=== PATIENT | male | born 1935 | race Caucasian/White ===

== ENCOUNTER 2020-12-07 06:14 | Day surgery (SDC) | payer OTHER ==
[~2020-12-07] VITALS: Ht 180.3 cm; Wt 85.3 kg
[~2020-12-07 06:14] MED LIST: ALBU90OI INH; ALLO100 PO; AMLO5 PO; ATOR20 PO; Aspir 8181 MG PO; ENTRESTO 24 MG1 EACH PO; ESCI10 PO; FURO20 PO; Imdur60 MG PO; METO100ER PO; NITROGLYCERIN0.4 M2 SL; TAMS.4ER PO; TIOT18 INH; Xanax0.5 MG PO
== END 2020-12-07 08:14 | disposition home or self-care (01) ==
LOC: ORSCSDS 06:14
PROVIDERS: Orthopaedic Surgery
PROC: 01N50ZZ Release Median Nerve, Open Approach (ICD-10-PCS; principal; 2020-12-07 07:30)
DX: G56.02 Carpal tunnel syndrome, left upper limb (principal); I10 Essential (primary) hypertension; E78.5 Hyperlipidemia, unspecified; I25.2 Old myocardial infarction; Z87.891 Personal history of nicotine dependence; Z79.82 Long term (current) use of aspirin; Z79.899 Other long term (current) drug therapy
CPT/HCPCS: J2704; J3010; J7120

== ENCOUNTER 2021-01-15 18:39 | Inpatient (IN) | payer OTHER ==
[~2021-01-15] VITALS: Ht 180.3 cm; Wt 85.1 kg
[2021-01-15 19:36] LABS: BASOPHILS ABSOLUTE AUTO 0.09 K/mm3 (0.00-0.23); BASOPHILS PERCENT AUTO 1 % (0-2); EOSINOPHILS ABSOLUTE AUTO 0.33 K/mm3 (0.00-0.68); EOSINOPHILS PERCENT AUTO 3 % (0-6); Hematocrit 39.3 % (37.0-53.0); Hemoglobin 13.7 g/dL (13.5-17.5); IMMATURE GRAN ABSOLUTE AUTO 0.05 K/mm3 (0.00-0.10); IMMATURE GRAN PERCENT AUTO 0 % (0-1); LYMPHOCYTES ABSOLUTE AUTO 0.72 K/mm3 (0.84-5.20); LYMPHOCYTES PERCENT AUTO 6 % (21-46); MONOCYTES ABSOLUTE AUTO 0.81 K/mm3 (0.16-1.47); MONOCYTES PERCENT AUTO 7 % (4-13); Mean Corpuscular HGB 35.3 pg (26.0-34.0); Mean Corpuscular HGB Conc 34.9 g/dL (31.5-36.5); Mean Corpuscular Volume 101 fL (80-100); Mean Platelet Volume 9.6 fL (9.1-12.4); NEUTROPHILS ABSOLUTE AUTO 9.57 K/mm3 (1.96-9.15); NEUTROPHILS PERCENT AUTO 83 % (41-73); Platelet Count 145 K/mm3 (150-400); RDW Coefficient Variation 13.4 % (11.7-14.2); RDW Standard Deviation 49.7 fL (35.1-46.3); Red Blood Cell Count 3.88 M/mm3 (4.30-5.90); White Blood Cell Count 11.57 K/mm3 (4.00-11.30)
[2021-01-15 19:47] LABS: Alanine Aminotransfer (ALT/SGP 19 U/L (12-78); Albumin, Blood 3.5 g/dL (3.4-5.0); Alk Phos 90 U/L (50-136); Anion Gap 7 mmol/L (6-16); Aspartate Aminotrans (AST/SGOT 13 U/L (12-37); Bilirubin, Total 0.7 mg/dL (0.1-1.0); Blood Urea Nitrogen 25 mg/dL (8-24); Bun/Creatinine Ratio 20.2 (12.0-20.0); CO2, Blood 23 mmol/L (21-32); Calcium, Blood 8.4 mg/dL (8.5-10.1); Chloride, Blood 105 mmol/L (98-108); Creatinine, Blood 1.24 mg/dL (0.60-1.20); Globulin, Blood 3.5 g/dL (2.2-4.0); Glomerular Filtration Rate 59 (60-); Glucose, Blood 141 mg/dL (70-99); Potassium, Blood 4.3 mmol/L (3.5-5.5); Sodium, Blood 135 mmol/L (136-145); Troponin I <0.015 ng/mL (0.000-0.040)
[2021-01-15] MEDS ORDERED: PANT20 PO (21:43)
[2021-01-15] MEDS ORDERED: CITA20 PO (21:44)
[2021-01-15 22:17] LABS: Influenza A, PCR NEGATIVE (NEGATIVE); Influenza B, PCR NEGATIVE (NEGATIVE); Resp Syncytial Virus, PCR NEGATIVE (NEGATIVE); SARS-Cov-2 (COVID-19) PCR, MMC NEGATIVE (NEGATIVE)
[2021-01-16 00:41] LABS: Source, Urine Clean Catch
[2021-01-16 00:43] LABS: Bilirubin, Urine Neg (Neg); Blood, Urine 2+ (Neg); Glucose Qualitative, Urine Neg (Neg); Ketones, Urine Neg (Neg); Leukocyte Esterase, Urine Neg (Neg); Nitrite, Urine Neg (Neg); Protein, Urine 3+ (Neg); Urobilinogen, Urine NORM (Normal)
[2021-01-16 00:53] LABS: Appearance, Urine Clear (Clear); Bacteria Not Seen /hpf; Color, Urine Pale Yellow (P-Yellow); Red Blood Cells, Urine 0-2 /hpf (0-2); Squamous Epithelial Cells Not Seen /hpf (Few); White Blood Cells, Urine Not Seen /hpf (0-5)
[2021-01-16 03:14] LABS: BASOPHILS ABSOLUTE AUTO 0.08 K/mm3 (0.00-0.23); BASOPHILS PERCENT AUTO 1 % (0-2); EOSINOPHILS PERCENT AUTO 2 % (0-6); Hematocrit 40.8 % (37.0-53.0); Hemoglobin 14.3 g/dL (13.5-17.5); IMMATURE GRAN ABSOLUTE AUTO 0.04 K/mm3 (0.00-0.10); IMMATURE GRAN PERCENT AUTO 0 % (0-1); LYMPHOCYTES ABSOLUTE AUTO 0.86 K/mm3 (0.84-5.20); LYMPHOCYTES PERCENT AUTO 8 % (21-46); MONOCYTES ABSOLUTE AUTO 1.01 K/mm3 (0.16-1.47); MONOCYTES PERCENT AUTO 9 % (4-13); Mean Corpuscular HGB 35.4 pg (26.0-34.0); Mean Corpuscular Volume 101 fL (80-100); Mean Platelet Volume 9.3 fL (9.1-12.4); NEUTROPHILS PERCENT AUTO 80 % (41-73); Platelet Count 133 K/mm3 (150-400); RDW Coefficient Variation 13.4 % (11.7-14.2); RDW Standard Deviation 50.3 fL (35.1-46.3); Red Blood Cell Count 4.04 M/mm3 (4.30-5.90); White Blood Cell Count 10.69 K/mm3 (4.00-11.30)
[2021-01-16 03:35] LABS: Alanine Aminotransfer (ALT/SGP 17 U/L (12-78); Albumin, Blood 3.5 g/dL (3.4-5.0); Albumin/Globulin Ratio 0.9 (0.8-1.8); Alk Phos 92 U/L (50-136); Anion Gap 8 mmol/L (6-16); Aspartate Aminotrans (AST/SGOT 13 U/L (12-37); Bilirubin, Total 0.8 mg/dL (0.1-1.0); Blood Urea Nitrogen 24 mg/dL (8-24); Bun/Creatinine Ratio 20.5 (12.0-20.0); CO2, Blood 24 mmol/L (21-32); CPK Creatine Kinase 104 U/L (39-308); Calcium, Blood 8.4 mg/dL (8.5-10.1); Chloride, Blood 105 mmol/L (98-108); Creatinine, Blood 1.17 mg/dL (0.60-1.20); Globulin, Blood 3.9 g/dL (2.2-4.0); Glomerular Filtration Rate >60 (60-); Glucose, Blood 108 mg/dL (70-99); Potassium, Blood 3.8 mmol/L (3.5-5.5); Sodium, Blood 137 mmol/L (136-145); Total Protein, Blood 7.4 g/dL (6.4-8.2); Troponin I 0.064 ng/mL (0.000-0.040)
[2021-01-16 12:45] LABS: Troponin I 0.039 ng/mL (0.000-0.040)
[2021-01-16] MEDS ORDERED: ESCI10 PO (12:53)
[2021-01-16] MEDS ORDERED: SALM50IP INH (12:54)
--- NOTE | 2021-01-16 19:24 | NUR ---
SHIFT SUMMARY- PT ALERT AND ORIENTED X4. PT HAS DYSPNEA ON EXERTION HOWEVER SATS ARE MAINTAINING ON 2L O2 VIA NC TO REDUCE CARDIAC WORKLOAD. PT ON ROOM AIR AT BASELINE. PT HAS DENIED ANY CHEST PAIN SINCE ADMIT THROUGH THE ED. CARDIAC HEART HEALTH DIET ORDERED. PT DID STATE 8/10 LOW BACK PAIN AFTER BEING IN THE BED FOR A WHILE, MEDICATED WITH TYLENOL WHICH THE PT STATED HE TAKES AT HOME FOR THIS TYPE OF PAIN. ADMIT COMPLETED LUNG SOUNDS COARSE. PT ON TELE RUNNING NSR WITH OCC PVC'S. PT IN BED CALL LIGHT IN REACH AT THE TIME OF SHIFT CHANGE, BEDSIDE REPORT COMPLETED WITH NIGHT RN, NO S&S OF DISTRESS NOTED. BP WAS ELEVATED MEDICATED WITH IV LASIX NIGHT RN AWARE.
[2021-01-17 05:13] LABS: BASOPHILS ABSOLUTE AUTO 0.08 K/mm3 (0.00-0.23); BASOPHILS PERCENT AUTO 1 % (0-2); EOSINOPHILS ABSOLUTE AUTO 0.23 K/mm3 (0.00-0.68); EOSINOPHILS PERCENT AUTO 2 % (0-6); Hematocrit 40.9 % (37.0-53.0); Hemoglobin 14.1 g/dL (13.5-17.5); IMMATURE GRAN ABSOLUTE AUTO 0.02 K/mm3 (0.00-0.10); IMMATURE GRAN PERCENT AUTO 0 % (0-1); LYMPHOCYTES ABSOLUTE AUTO 0.72 K/mm3 (0.84-5.20); LYMPHOCYTES PERCENT AUTO 7 % (21-46); MONOCYTES ABSOLUTE AUTO 0.91 K/mm3 (0.16-1.47); MONOCYTES PERCENT AUTO 9 % (4-13); Mean Corpuscular HGB 35.2 pg (26.0-34.0); Mean Corpuscular HGB Conc 34.5 g/dL (31.5-36.5); Mean Corpuscular Volume 102 fL (80-100); Mean Platelet Volume 9.6 fL (9.1-12.4); NEUTROPHILS ABSOLUTE AUTO 7.74 K/mm3 (1.96-9.15); NEUTROPHILS PERCENT AUTO 80 % (41-73); Platelet Count 135 K/mm3 (150-400); RDW Coefficient Variation 13.2 % (11.7-14.2); RDW Standard Deviation 50.2 fL (35.1-46.3); Red Blood Cell Count 4.01 M/mm3 (4.30-5.90)
[2021-01-17 05:39] LABS: Bun/Creatinine Ratio 22.8 (12.0-20.0); Calcium, Blood 8.1 mg/dL (8.5-10.1); Creatinine, Blood 1.23 mg/dL (0.60-1.20); Magnesium, Blood 1.9 mg/dL (1.6-2.4); Potassium, Blood 4.2 mmol/L (3.5-5.5)
--- NOTE | 2021-01-17 07:00 | NUR ---
ASSUMED CARE OF PT- BEDSIDE REPORT COMPLETED WITH NIGHT RN. PER REPORT PT HAD A 26 BEAT RUN OF V-TACH AT AROUND 0615. NIGHT HOSPITALIST WAS CALLED AND AN ORDER WAS RECIEVED FOR IV MAGNESIUM. AT THE TIME OF SHIFT CHANGE THIS MED HAD NOT BEEN RECIEVED FROM PHARMACY YET. PT HR WAS BACK TO SINUS RYTHM WITH FREQUENT PVC'S. SPOKE TO [employer] STEPHEN WHO PRINTED STRIPS. RATE AT THE TIME OF V-TACH WAS 118. SPOKE TO DR COOPER. SHE CAME TO SEE THE PT WHO IS NOW RUNNING NSR AT 83 WITH PVCS AT A RATE OF 16-19 PER MINUTE. ORDER RECIEVED TO HOLD THE IV MAGNESIUM AND GIVE THE PT HIS MORNING RATE CONTROL MEDICATIONS.
--- NOTE | 2021-01-17 07:48 | NUR ---
SHIFT SUMMARY AOX4. VSS. SPO2 >90% ON 1L O2. DENIES DYSPNEA @REST. LUNGS ARE DIM. NO COUGH NOTED. TELE @NSR c PVCS. AT 0615 TELE BLENDER LABORER NOTIFIED THIS NURSE PT HAD 5 BEAT RUN V. TACH @0608 & THEN 26 BEAT RUN V. TACH @0609, HOWEVER WAS NSR c "ALOT" OF PVCS @0615. ASSESSED PT & HE REPORTED "CHEST TIGHTNESS" 3/10 & LIGHTHEADEDNESS, VITALS WERE STABLE-NOTIFIED DR PINEDA & HE ORDERED 1GM IV MAG EVEN THOUGH MAG @1.9 c LABS TODAY. INFORMED DAY NURSE RAYMOND OF TELE CHANGES. CALL LIGHT IN REACH.
--- NOTE | 2021-01-17 08:00 | NUR ---
CALLED DR COOPER- PT SBP WAS IN THE 180'S IN THE ED AND AFTER THE IV LASIX IT DROPPED TO THE 120'S. TODAY BP IN THE 150'S AND IV LASIX WAS GIVEN, OK TO GIVE THE METOPROLOL AND HOLD OFF ON THE OTHERS UNTIL BP RECHECK.
--- NOTE | 2021-01-17 09:15 | NUR ---
PT SBP 160'S GAVE REMAINDER OF THE PT BP MEDICATIONS.
--- NOTE | 2021-01-17 13:27 | NUR ---
Echocardiogram completed.
--- NOTE | 2021-01-17 17:35 | NUR ---
CALLED DR COOPER- PT SBP 118 HR IN THE 80'S WITH FREQUENT PVC'S AT ABOUT 20 PER MINUTE. OK TO HOLD LASIX AND ENTRESTO AT THIS TIME AND REEVALUATE THE PT VITALS IN 1 HOUR METOPROLOL AND IMDUR GIVEN. WILL CTM.
--- NOTE | 2021-01-17 18:44 | NUR ---
SHIFT SUMMARY- PT BP RECHECK BP WAS UP AGAIN MEDICATED WITH THE REMAINING BP MEDS. PT STATED A HEADACHE 4/10 AND FEELING CHILLED. PT HAS A LOW TEMP 99.4. MEDICATED WITH TYLENOL. PT SITTING UP IN BED CALL LIGHT IN REACH, ON TELE RUNNING SINUS RYTHM WITH BIGEMINAL PVC'S. PT IS A BIT UNCOMFORTABLE AND HIS BACK IS STARTING TO ACHE, TYLENOL MANAGED THIS WELL PREVIOUSLY. PT ALERT AND ORIENTED, CARDIOLOGY CONSULTED TODAY DR PUTNAM CAME TO SEE THE PT AND MADE SOME MEDICATION CHANGES. SEE EMAR FOR DETAILS. WILL PASS ALL ON TO NIGHT RN IN BEDSIDE REPORT.
--- NOTE | 2021-01-18 03:29 | NUR ---
PATIENT SLEPT WELL AFTER ABOUT 0100. HE WAS FULLY AWAKE AND DID NOT WANT TO TAKE ANYTHING TO ASSIST HIM TO SLEEP. STATES HE "DOES NOT WANT TO TAKE ANYTHING HE MIGHT GET ADDICTED TO". NO COMPLAINTS OF DISCOMFORT OTHER THAN SLIGHT NAUSEA AROUND 1230 WHICH WAS RESOLVED WITH LEXIE CRACKERS AND AN ICED DOWN GATORADE. TELE WAS SINUS RHYTHM WITH SIGNIFICANTLY LESS PVC'S AND NO RUNS OR BIGEMINY OVERNIGHT. RATE 70'S TO 90'S.
[2021-01-18 05:13] LABS: BASOPHILS ABSOLUTE AUTO 0.09 K/mm3 (0.00-0.23); BASOPHILS PERCENT AUTO 1 % (0-2); EOSINOPHILS PERCENT AUTO 4 % (0-6); Hematocrit 35.1 % (37.0-53.0); Hemoglobin 11.9 g/dL (13.5-17.5); IMMATURE GRAN ABSOLUTE AUTO 0.03 K/mm3 (0.00-0.10); IMMATURE GRAN PERCENT AUTO 0 % (0-1); LYMPHOCYTES ABSOLUTE AUTO 0.97 K/mm3 (0.84-5.20); LYMPHOCYTES PERCENT AUTO 10 % (21-46); MONOCYTES ABSOLUTE AUTO 1.13 K/mm3 (0.16-1.47); MONOCYTES PERCENT AUTO 12 % (4-13); Mean Corpuscular HGB 34.7 pg (26.0-34.0); Mean Corpuscular HGB Conc 33.9 g/dL (31.5-36.5); Mean Corpuscular Volume 102 fL (80-100); Mean Platelet Volume 9.5 fL (9.1-12.4); NEUTROPHILS ABSOLUTE AUTO 7.11 K/mm3 (1.96-9.15); NEUTROPHILS PERCENT AUTO 73 % (41-73); Platelet Count 126 K/mm3 (150-400); RDW Coefficient Variation 13.2 % (11.7-14.2); Red Blood Cell Count 3.43 M/mm3 (4.30-5.90); White Blood Cell Count 9.73 K/mm3 (4.00-11.30)
[2021-01-18 05:33] LABS: Anion Gap 6 mmol/L (6-16); Blood Urea Nitrogen 39 mg/dL (8-24); Bun/Creatinine Ratio 24.4 (12.0-20.0); CO2, Blood 27 mmol/L (21-32); Calcium, Blood 7.7 mg/dL (8.5-10.1); Chloride, Blood 101 mmol/L (98-108); Cholesterol 92 mg/dL (50-200); Glomerular Filtration Rate 44 (60-); Glucose, Blood 115 mg/dL (70-99); HDL Cholesterol 47 mg/dL (>39); LDL/HDL RATIO 0.6; Low Density Lipoprotein Chol 30 mg/dL (0-110); Potassium, Blood 4.1 mmol/L (3.5-5.5); Sodium, Blood 134 mmol/L (136-145); Triglycerides 77 mg/dL (30-160); Very Low Density Lipoprot Chol 15 mg/dL (6-32)
[2021-01-18 12:40] LABS: BASOPHILS ABSOLUTE AUTO 0.07 K/mm3 (0.00-0.23); BASOPHILS PERCENT AUTO 1 % (0-2); EOSINOPHILS ABSOLUTE AUTO 0.43 K/mm3 (0.00-0.68); EOSINOPHILS PERCENT AUTO 4 % (0-6); Hemoglobin 12.7 g/dL (13.5-17.5); IMMATURE GRAN ABSOLUTE AUTO 0.03 K/mm3 (0.00-0.10); IMMATURE GRAN PERCENT AUTO 0 % (0-1); LYMPHOCYTES ABSOLUTE AUTO 0.91 K/mm3 (0.84-5.20); LYMPHOCYTES PERCENT AUTO 9 % (21-46); MONOCYTES ABSOLUTE AUTO 1.14 K/mm3 (0.16-1.47); MONOCYTES PERCENT AUTO 11 % (4-13); Mean Corpuscular HGB 34.8 pg (26.0-34.0); Mean Corpuscular HGB Conc 34.3 g/dL (31.5-36.5); Mean Corpuscular Volume 101 fL (80-100); Mean Platelet Volume 9.1 fL (9.1-12.4); NEUTROPHILS PERCENT AUTO 76 % (41-73); Platelet Count 140 K/mm3 (150-400); RDW Coefficient Variation 13.2 % (11.7-14.2); RDW Standard Deviation 49.9 fL (35.1-46.3); Red Blood Cell Count 3.65 M/mm3 (4.30-5.90); White Blood Cell Count 10.68 K/mm3 (4.00-11.30)
[2021-01-18] MEDS ORDERED: Isosorbide Mono30 MG PO (15:12)
[2021-01-18] MEDS ORDERED: DOXY100 PO (15:15)
--- NOTE | 2021-01-18 15:41 | NUR ---
DISCHARGE SUMMARY PT DISCHARGED AT APPROX 1540. WHEELED DOWN BY TEACHER [employer] TO MEET @ [facility]. DISCHARGE INSTRUCTIONS AND CHANGES MADE TO MEDS REVIEWED WITH PT, PT HAD NO FURTHER QUESTIONS AT THIS TIME. INFORMED THAT [facility] WILL CONTACT HIM REGARDING A FOLLOW UP APPOINTMENT. IV WAS REMOVED, SITE APPEARED WNL. TELE REMOVED, TECH WAS INFORMED. RX NEEDED FAXED TO PHARMACY OF PT CHOICE ([facility]). PT STATED HE HAD ALL OF HIS BELONGINGS.
--- NOTE | 2021-01-18 17:13 | NUR ---
ADMIT: 01/15/21 DISCHARGE: 01/18/21 DX: Acute CHF CC: [email or web address] TORRES CALL: Call Dl at home for torres, 1 week f/u with torres RESIDENCE: Home with spouse CAREGIVER: Yoli Gonzalez, Spouse / Partner, DX: CKD, COPD, arteriosclerosis, HTN, see list DME: Walker, 4 ww with seat, cane. CCM: None HOME HEALTH: Not home bound SUMMARY: Admit 01/15/21 Discharge 01/18/21 Met with Dl, has ride home, can stop at pharmacy if needed, good insurance coverage for stay and outpatient. Has adequte mobility devices at home. Not homebound, does not need home health. Reviewed discharge checklist, did not identify any care needs. Discussed [facility] to Call Friday or Friday to follow up and schedule 1 week appointment. cp 1. 85-year-old male coming in with shortness of breath, likely from both [id number] diastolic congestive heart failure exacerbation and acute bronchitis, early pneumonia.
== END 2021-01-18 15:42 | disposition home or self-care (01) | DRG 291 ==
LOC: ER 18:39 → ERHOLD 18:40 → MEDS 01-16 14:16 → ERHOLD 01-16 14:16 → MEDS 01-16 14:40
PROVIDERS: Emergency Medicine; Family Medicine; Internal Medicine Cardiovascular Disease; Physician Assistant; ADMIT Internal Medicine
DX: I13.0 Hypertensive heart and chronic kidney disease with heart failure and stage 1 through stage 4 chronic kidney disease, or unspecified chronic kidney disease (principal); J18.9 Pneumonia, unspecified organism; I50.43 Acute on chronic combined systolic (congestive) and diastolic (congestive) heart failure; J96.20 Acute and chronic respiratory failure, unspecified whether with hypoxia or hypercapnia; A41.9 Sepsis, unspecified organism; J44.1 Chronic obstructive pulmonary disease with (acute) exacerbation; J44.0 Chronic obstructive pulmonary disease with (acute) lower respiratory infection; N17.9 Acute kidney failure, unspecified; D69.6 Thrombocytopenia, unspecified; I16.0 Hypertensive urgency; I25.118 Atherosclerotic heart disease of native coronary artery with other forms of angina pectoris; Z20.822 Contact with and (suspected) exposure to COVID-19; I65.21 Occlusion and stenosis of right carotid artery; I25.5 Ischemic cardiomyopathy; D64.9 Anemia, unspecified; I35.1 Nonrheumatic aortic (valve) insufficiency; I73.9 Peripheral vascular disease, unspecified; E78.5 Hyperlipidemia, unspecified; F41.9 Anxiety disorder, unspecified; Z66 Do not resuscitate; K21.9 Gastro-esophageal reflux disease without esophagitis; N40.0 Benign prostatic hyperplasia without lower urinary tract symptoms; N18.9 Chronic kidney disease, unspecified; I65.23 Occlusion and stenosis of bilateral carotid arteries; M54.5 Low back pain; G89.29 Other chronic pain; E66.3 Overweight; Z68.26 Body mass index [BMI] 26.0-26.9, adult; I25.2 Old myocardial infarction; Z87.891 Personal history of nicotine dependence; Z79.82 Long term (current) use of aspirin
CPT/HCPCS: 0241U; 36415; 71045; 80048; 80053; 80061; 81001; 82550; 82607; 82746; 83605; 83735; 83880; 84145; 84484; 85025; 87040; 93005; 93010; 93308; 93321; 94640; 94760; 96365; 96372; 96375; 96376; 97110; 97162; 97165; 97535; 99285-25; A9270; C9113; J0696; J1650; J1940; J7050

== ENCOUNTER 2021-08-23 19:21 | Emergency (ER) | payer OTHER ==
[~2021-08-23] VITALS: Ht 180.3 cm; Wt 79.4 kg
[~2021-08-23 19:21] MED LIST changes: +CITA20 PO; +DOXY100 PO; +Isosorbide Mono30 MG PO; +PANT20 PO; +SALM50IP INH
[2021-08-23 19:59] LABS: BASOPHILS ABSOLUTE AUTO 0.06 K/mm3 (0.00-0.23); BASOPHILS PERCENT AUTO 1 % (0-2); EOSINOPHILS ABSOLUTE AUTO 0.29 K/mm3 (0.00-0.68); EOSINOPHILS PERCENT AUTO 4 % (0-6); Hematocrit 35.5 % (37.0-53.0); Hemoglobin 12.4 g/dL (13.5-17.5); IMMATURE GRAN ABSOLUTE AUTO 0.01 K/mm3 (0.00-0.10); IMMATURE GRAN PERCENT AUTO 0 % (0-1); LYMPHOCYTES ABSOLUTE AUTO 0.89 K/mm3 (0.84-5.20); LYMPHOCYTES PERCENT AUTO 12 % (21-46); MONOCYTES PERCENT AUTO 10 % (4-13); Mean Corpuscular HGB 34.8 pg (26.0-34.0); Mean Corpuscular HGB Conc 34.9 g/dL (31.5-36.5); Mean Corpuscular Volume 100 fL (80-100); NEUTROPHILS ABSOLUTE AUTO 5.23 K/mm3 (1.96-9.15); NEUTROPHILS PERCENT AUTO 73 % (41-73); Platelet Count 131 K/mm3 (150-400); RDW Coefficient Variation 12.9 % (11.7-14.2); RDW Standard Deviation 48.1 fL (35.1-46.3); Red Blood Cell Count 3.56 M/mm3 (4.30-5.90); White Blood Cell Count 7.18 K/mm3 (4.00-11.30)
[2021-08-23 20:14] LABS: Alanine Aminotransfer (ALT/SGP 17 U/L (12-78); Albumin, Blood 2.8 g/dL (3.4-5.0); Albumin/Globulin Ratio 0.8 (0.8-1.8); Alk Phos 54 U/L (50-136); Anion Gap 7 mmol/L (6-16); Aspartate Aminotrans (AST/SGOT 10 U/L (12-37); Bilirubin, Direct 0.2 mg/dL (0.0-0.3); Bilirubin, Indirect 0.4 mg/dL (0.1-0.7); Bilirubin, Total 0.6 mg/dL (0.1-1.0); Blood Urea Nitrogen 46 mg/dL (8-24); Bun/Creatinine Ratio 27.9 (12.0-20.0); CO2, Blood 21 mmol/L (21-32); Calcium, Blood 7.4 mg/dL (8.5-10.1); Chloride, Blood 113 mmol/L (98-108); Creatinine, Blood 1.65 mg/dL (0.60-1.20); Globulin, Blood 3.4 g/dL (2.2-4.0); Glomerular Filtration Rate 40 (60-); Glucose, Blood 94 mg/dL (70-99); Magnesium, Blood 2.3 mg/dL (1.6-2.4); Potassium, Blood 4.7 mmol/L (3.5-5.5); Sodium, Blood 141 mmol/L (136-145); Total Protein, Blood 6.2 g/dL (6.4-8.2); Troponin I <0.015 ng/mL (0.000-0.040)
[2021-08-23] MEDS ORDERED: Amlodipine Bes2.5 MG PO (23:16)
[2021-08-23] MEDS ORDERED: CILO100 PO (23:16)
== END 2021-08-24 01:16 | disposition home or self-care (01) ==
LOC: ER 19:21
PROVIDERS: Student in an Organized Health Care Education/Training Program
DX: R07.9 Chest pain, unspecified (principal); R06.02 Shortness of breath; I49.3 Ventricular premature depolarization; I11.0 Hypertensive heart disease with heart failure; I50.9 Heart failure, unspecified; J44.9 Chronic obstructive pulmonary disease, unspecified; I25.2 Old myocardial infarction; Z88.1 Allergy status to other antibiotic agents; Z88.5 Allergy status to narcotic agent; Z88.8 Allergy status to other drugs, medicaments and biological substances; Z79.82 Long term (current) use of aspirin; Z79.899 Other long term (current) drug therapy
CPT/HCPCS: 36415; 71046; 80048; 80076; 83690; 83735; 83880; 84484; 85025; 93005; 93010; 99284-25; A9270

== ENCOUNTER 2022-11-21 23:59 | Observation (INO) | payer OTHER ==
[~2022-11-21] VITALS: Ht 180.3 cm; Wt 83.5 kg
[~2022-11-21 23:59] MED LIST changes: +Amlodipine Bes2.5 MG PO; +CILO100 PO; +ISOSORBIDE MONO60 MG PO; -Isosorbide Mono30 MG PO; -METO100ER PO; +METO25ER PO; +PRED20 PO
[2022-11-22 01:30] LABS: Albumin, Blood 3.6 g/dL (3.4-5.0); Albumin/Globulin Ratio 0.9 (0.8-1.8); BASOPHILS ABSOLUTE AUTO 0.02 K/mm3 (0.00-0.23); BASOPHILS PERCENT AUTO 0 % (0-2); Bilirubin, Total 0.3 mg/dL (0.1-1.0); Bun/Creatinine Ratio 37.6 (12.0-20.0); Calcium, Blood 8.7 mg/dL (8.5-10.1); Creatinine, Blood 1.65 mg/dL (0.60-1.20); EOSINOPHILS PERCENT AUTO 0 % (0-6); Hematocrit 44.4 % (37.0-53.0); Hemoglobin 15.1 g/dL (13.5-17.5); IMMATURE GRAN ABSOLUTE AUTO 0.22 K/mm3 (0.00-0.10); IMMATURE GRAN PERCENT AUTO 1 % (0-1); LYMPHOCYTES ABSOLUTE AUTO 0.47 K/mm3 (0.84-5.20); LYMPHOCYTES PERCENT AUTO 3 % (21-46); MONOCYTES ABSOLUTE AUTO 0.53 K/mm3 (0.16-1.47); MONOCYTES PERCENT AUTO 3 % (4-13); Mean Corpuscular HGB 34.8 pg (26.0-34.0); Mean Corpuscular Volume 102 fL (80-100); Mean Platelet Volume 10.4 fL (9.1-12.4); NEUTROPHILS PERCENT AUTO 93 % (41-73); Platelet Count 155 K/mm3 (150-400); Potassium, Blood 4.7 mmol/L (3.5-5.5); RDW Standard Deviation 53.1 fL (35.1-46.3); Red Blood Cell Count 4.34 M/mm3 (4.30-5.90); Total Protein, Blood 7.6 g/dL (6.4-8.2); White Blood Cell Count 16.84 K/mm3 (4.00-11.30)
[2022-11-22 05:42] LABS: BASOPHILS ABSOLUTE AUTO 0.02 K/mm3 (0.00-0.23); BASOPHILS PERCENT AUTO 0 % (0-2); EOSINOPHILS PERCENT AUTO 0 % (0-6); Hematocrit 44.7 % (37.0-53.0); Hemoglobin 15.2 g/dL (13.5-17.5); IMMATURE GRAN ABSOLUTE AUTO 0.08 K/mm3 (0.00-0.10); IMMATURE GRAN PERCENT AUTO 1 % (0-1); LYMPHOCYTES ABSOLUTE AUTO 0.52 K/mm3 (0.84-5.20); LYMPHOCYTES PERCENT AUTO 3 % (21-46); MONOCYTES ABSOLUTE AUTO 0.59 K/mm3 (0.16-1.47); MONOCYTES PERCENT AUTO 4 % (4-13); Mean Corpuscular HGB 34.9 pg (26.0-34.0); Mean Corpuscular Volume 103 fL (80-100); Mean Platelet Volume 9.7 fL (9.1-12.4); NEUTROPHILS PERCENT AUTO 92 % (41-73); Platelet Count 149 K/mm3 (150-400); RDW Coefficient Variation 13.8 % (11.7-14.2); RDW Standard Deviation 52.4 fL (35.1-46.3); Red Blood Cell Count 4.36 M/mm3 (4.30-5.90); White Blood Cell Count 15.71 K/mm3 (4.00-11.30)
[2022-11-22] MEDS ORDERED: NEURONTIN300 MG PO (05:58)
[2022-11-22] MEDS ORDERED: PANT20 PO (05:59)
[2022-11-22] MEDS ORDERED: FARXIGA10 MG PO (05:59)
[2022-11-22] MEDS ORDERED: TAMSULOSIN HCL0.4 M1 PO (06:01)
[2022-11-22] MEDS ORDERED: ALPRAZOLAM0.5 M1 PO (06:02)
[2022-11-22 06:06] LABS: Albumin, Blood 3.7 g/dL (3.4-5.0); Albumin/Globulin Ratio 0.9 (0.8-1.8); Bilirubin, Total 0.5 mg/dL (0.1-1.0); Bun/Creatinine Ratio 36.3 (12.0-20.0); Calcium, Blood 8.9 mg/dL (8.5-10.1); Creatinine, Blood 1.57 mg/dL (0.60-1.20); Globulin, Blood 4.1 g/dL (2.2-4.0); Potassium, Blood 4.9 mmol/L (3.5-5.5); Total Protein, Blood 7.8 g/dL (6.4-8.2)
[2022-11-22] MEDS ORDERED: Celexa20 MG PO (13:54)
[2022-11-22] MEDS ORDERED: Isosorbide Mono30 MG PO (13:55)
--- NOTE | 2022-11-22 17:30 | NUR ---
DISCHARGE PATIENT TRANSPORTED VIA WHEELCHAIR TO [facility]. DISCHARGE INJSTRUCTIONS EXPLAINED TO PATIENT. PATIENT STATED UNDERSTANDING. PACKET SENT WITH PATIENT. IV REMOVED WITHOUT DIFFICULTY. BELONGINGS SENT WITH PATIENT. AT BEDSIDE DURING DISCHARGE. MEDICATIONS FAXED TO PREFERRED PHARMACY. [facility] TO CALL PATIENT TO SCHEDULE FOLLOW UP APPOINTMENT.
== END 2022-11-22 17:18 | disposition home or self-care (01) ==
LOC: ER 23:59 → MEDS 11-22
PROVIDERS: Family Medicine; Student in an Organized Health Care Education/Training Program; ADMIT Family Medicine
DX: R07.9 Chest pain, unspecified (principal); J44.9 Chronic obstructive pulmonary disease, unspecified; I50.9 Heart failure, unspecified; Z88.5 Allergy status to narcotic agent; Z88.8 Allergy status to other drugs, medicaments and biological substances
CPT/HCPCS: 36415; 71045; 78452; 80053; 83036; 83880; 84484; 85025; 93005; 93010; 93017; 99285-25; A9270; A9500; G0378; J0706; J2785

== ENCOUNTER 2023-02-12 14:13 | Day surgery (SDC) | payer OTHER ==
[~2023-02-12] VITALS: Ht 180.3 cm; Wt 83.8 kg
[~2023-02-12 14:13] MED LIST changes: +ALPRAZOLAM0.5 M1 PO; +Celexa20 MG PO; +FARXIGA10 MG PO; +Isosorbide Mono30 MG PO; +NEURONTIN300 MG PO; +TAMSULOSIN HCL0.4 M1 PO
[2023-02-12] MEDS ORDERED: ALBU2.5V5 (15:02)
--- NOTE | 2023-02-12 15:06 | NUR ---
02/12/23 1506 HUA BLANCA VERBAL ORDER BY DR. PASTRANA TO GIVE DUONEB UPDRAFT TREATMENT PRIOR TO PROCEDURE.- DR. HOLGUIN IS IN AGREEMENT WITH THIS.
--- NOTE | 2023-02-12 15:37 | NUR ---
02/12/23 1537 Keny Judd 5 MLS OF LIDOCAINE 2% 1:100,000 W/ BUPIVACAINE 0.5% 1:1 INJECTED AT OPSITE BY [address] RANKIN.
== END 2023-02-12 16:15 | disposition home or self-care (01) ==
LOC: ORSCSDS 14:13
PROVIDERS: Ophthalmology
PROC: 08SQXZZ Reposition Right Lower Eyelid, External Approach (ICD-10-PCS; principal; 2023-02-12 15:30)
DX: H02.032 Senile entropion of right lower eyelid (principal); H16.211 Exposure keratoconjunctivitis, right eye; H02.834 Dermatochalasis of left upper eyelid; H02.831 Dermatochalasis of right upper eyelid; I12.9 Hypertensive chronic kidney disease with stage 1 through stage 4 chronic kidney disease, or unspecified chronic kidney disease; N18.30 Chronic kidney disease, stage 3 unspecified; Z87.891 Personal history of nicotine dependence; I25.2 Old myocardial infarction; I50.9 Heart failure, unspecified; J44.9 Chronic obstructive pulmonary disease, unspecified; F41.9 Anxiety disorder, unspecified; F32.A Depression, unspecified; Z79.82 Long term (current) use of aspirin; Z79.899 Other long term (current) drug therapy
CPT/HCPCS: A9270; J2250; J2704; J3010

== ENCOUNTER → 2024-05-30 | Outpatient (CLI) | payer OTHER ==
[~2024-05-30] MED LIST changes: +ALBU2.5V5
[2024-05-30 12:21] LABS: BASOPHILS ABSOLUTE AUTO 0.07 K/mm3 (0.00-0.23); BASOPHILS PERCENT AUTO 1 % (0-2); EOSINOPHILS PERCENT AUTO 4 % (0-6); Hematocrit 37.3 % (37.0-53.0); Hemoglobin 12.3 g/dL (13.5-17.5); IMMATURE GRAN ABSOLUTE AUTO 0.03 K/mm3 (0.00-0.10); IMMATURE GRAN PERCENT AUTO 0 % (0-1); LYMPHOCYTES ABSOLUTE AUTO 0.88 K/mm3 (0.84-5.20); LYMPHOCYTES PERCENT AUTO 8 % (21-46); MONOCYTES ABSOLUTE AUTO 1.22 K/mm3 (0.16-1.47); MONOCYTES PERCENT AUTO 12 % (4-13); Mean Corpuscular HGB 34.4 pg (26.0-34.0); Mean Corpuscular Volume 104 fL (80-100); Mean Platelet Volume 9.9 fL (9.1-12.4); NEUTROPHILS ABSOLUTE AUTO 7.91 K/mm3 (1.96-9.15); NEUTROPHILS PERCENT AUTO 75 % (41-73); Platelet Count 169 K/mm3 (150-400); RDW Coefficient Variation 13.8 % (11.7-14.2); RDW Standard Deviation 53.1 fL (35.1-46.3); Red Blood Cell Count 3.58 M/mm3 (4.30-5.90); White Blood Cell Count 10.51 K/mm3 (4.00-11.30)
[2024-05-30 12:33] LABS: Albumin, Blood 4.6 g/dL (3.4-5.0); Albumin/Globulin Ratio 1.2 (0.8-1.8); Bilirubin, Total 0.7 mg/dL (0.1-1.0); Bun/Creatinine Ratio 10.4 (12.0-20.0); Calcium, Blood 9.7 mg/dL (8.5-10.1); Creatinine, Blood 0.77 mg/dL (0.60-1.20); Globulin, Blood 3.9 g/dL (2.2-4.0); Potassium, Blood 4.2 mmol/L (3.5-5.5); Total Protein, Blood 8.5 g/dL (6.4-8.2)
== END | disposition home or self-care (01) ==
LOC: LAB SHORT 12:17 → LAB 12:17
PROVIDERS: Physician Assistant Surgical
DX: R06.02 Shortness of breath (principal)
CPT/HCPCS: 80053; 83880; 84484; 85025

== ENCOUNTER 2025-06-02 11:57 | Inpatient (IN) | payer OTHER ==
[~2025-06-02] VITALS: Ht 180.3 cm; Wt 88.4 kg
[~2025-06-02 11:57] MED LIST changes: -ALBU2.5V5; +ALBU2.5V5 INH
[2025-06-02] MEDS ORDERED: Ondansetron HCl 2 MG / ML 2ML Vial IV PRN (12:10)
[2025-06-02 12:12] LABS: BASOPHILS ABSOLUTE AUTO 0.07 K/mm3 (0.00-0.23); BASOPHILS PERCENT AUTO 1 % (0-2); EOSINOPHILS ABSOLUTE AUTO 0.41 K/mm3 (0.00-0.68); EOSINOPHILS PERCENT AUTO 4 % (0-6); Hematocrit 38.8 % (37.0-53.0); Hemoglobin 13.0 g/dL (13.5-17.5); IMMATURE GRAN ABSOLUTE AUTO 0.02 K/mm3 (0.00-0.10); IMMATURE GRAN PERCENT AUTO 0 % (0-1); LYMPHOCYTES ABSOLUTE AUTO 0.82 K/mm3 (0.84-5.20); LYMPHOCYTES PERCENT AUTO 8 % (21-46); MONOCYTES ABSOLUTE AUTO 0.49 K/mm3 (0.16-1.47); MONOCYTES PERCENT AUTO 5 % (4-13); Mean Corpuscular HGB Conc 33.5 g/dL (31.5-36.5); Mean Corpuscular Volume 107 fL (80-100); NEUTROPHILS ABSOLUTE AUTO 8.63 K/mm3 (1.96-9.15); NEUTROPHILS PERCENT AUTO 83 % (41-73); NRBC ABSOLUTE 0.00 K/mm3 (0.00-0.02); NRBC Auto 0.0 /100 WBC (0.0-0.2); Platelet Count 125 K/mm3 (150-400); RDW Coefficient Variation 13.4 % (11.7-14.2); RDW Standard Deviation 52.7 fL (35.1-46.3)
[2025-06-02 12:31] LABS: Alanine Aminotransfer (ALT/SGP 20.0 U/L (12-78); Albumin, Blood 3.6 g/dL (3.4-5.0); Albumin/Globulin Ratio 0.9 (0.8-1.8); Anion Gap 7.0 mmol/L (3-11); Aspartate Aminotrans (AST/SGOT 15.0 U/L (12-37); Bilirubin, Total 0.5 mg/dL (0.1-1.0); Blood Urea Nitrogen 35.0 mg/dL (8-24); CO2, Blood 28.0 mmol/L (21-32); Calcium, Blood 8.8 mg/dL (8.5-10.1); Chloride, Blood 106.0 mmol/L (98-108); Creatinine, Blood 1.37 mg/dL (0.60-1.20); Globulin, Blood 4.0 g/dL (2.2-4.0); Glucose, Blood 133.0 mg/dL (70-99); Potassium, Blood 4.7 mmol/L (3.5-5.5); Sodium, Blood 136.0 mmol/L (136-145); Total Protein, Blood 7.6 g/dL (6.4-8.2)
[2025-06-02] MEDS ORDERED: Nitroglycerin 1 INCH/GM PKT TOP ONE (13:15)
[2025-06-02] MEDS ORDERED: FentaNYL Citrate 50 MCG/ML 2 ML Injection IV ONE (14:10)
[2025-06-02] MEDS ORDERED: Ipratropium/Albuterol SulF 2.5-0.5MG/3 ML Amp INH PRN (15:35)
[2025-06-02] MEDS ORDERED: HYDROcodone 10-APAP 325 TAB PO PRN (15:35)
[2025-06-02] MEDS ORDERED: Mag Hydrox/Al Hydrox/Simeth 18 ML,Lidocaine 2% Viscous Soln 9 ML,Atropine/Scopalam/Hyos... PO ONE (15:50)
[2025-06-02] MEDS ORDERED: Pantoprazole Sodium 40 MG Injection IV SCH (16:30)
[2025-06-02 16:44] VITALS: BP 152/78
--- NOTE | 2025-06-02 18:07 | NUR ---
SHIFT SUMMARY PT A&OX4, VSS, ON 3L O2 NC, AMB W/ ASSIST, TOLERATING MINIMAL PO, VOIDING, AND PAIN MANAGED PER EMAR. ONE MORE TROP DRAW TO BE COMPLETED. CALL LIGHT WITHIN REACH AND PT ABLE TO MAKE NEEDS KNOWN.
[2025-06-02 20:23] VITALS: BP 153/64
--- NOTE | 2025-06-02 21:43 | NUR ---
PT CHOKED/VOMITED UP PILLS WHEN I GAVE THE PATIENT HIS PILLS. HE CHOKED AND VOMITED TWO OF THEM UP WHEN HE WAS ATTEMPTING TO SWALLOW. I WAS ABLE TO GET HIM TO SUCCESSFULLY SWALLOW THE REST OF HIS PILLS WHEN I PUT THEM IN PUDDING AND GAVE THEM TO HIM ONE BY ONE. HE TELLS ME THAT THIS IS THE FIRST TIME THAT HAS EVER HAPPENED TO HIM.
[2025-06-03 00:46] VITALS: BP 149/59
--- NOTE | 2025-06-03 04:18 | NUR ---
SHIFT SUMMARY ADMITTED FOR CHEST PAIN. DNR CODE. RULING OUT ACS, POSSIBILITY OF A STRESS TEST TODAY. CHEST XRAY DOES SHOW POSSIBLE PNEUMONIA VERSUS BRONCHITIS. HE IS A&O X3-4, ON 3 LPM O2 AT BASELINE, 1 ASSIST W/FWW. TELEMETRY: TACHY @ 105 BPM, W/PAC'S & PVC'S. HE HAD DIFFICULTY SWALLOWING PILLS FOR ME LAST NIGHT, SEEMINGLY CHOKING ON THEM AND STRUGGLING TO SWALLOW - (ASPIRATION PNEU?). I WONDER IF A SWALLOW EVAL WOULD BE APPROPRIATE. HE DID DENY CHOKING EVER BEFORE, BUT I HAVE WITNESSED CHOKING TWICE THIS SHIFT. TRENDING TROPONINS, STILL NOT PEAKED.
[2025-06-03 05:20] LABS: BASOPHILS ABSOLUTE AUTO 0.05 K/mm3 (0.00-0.23); BASOPHILS PERCENT AUTO 0 % (0-2); Hematocrit 37.5 % (37.0-53.0); Hemoglobin 12.3 g/dL (13.5-17.5); LYMPHOCYTES ABSOLUTE AUTO 0.39 K/mm3 (0.84-5.20); LYMPHOCYTES PERCENT AUTO 3 % (21-46); MONOCYTES ABSOLUTE AUTO 0.45 K/mm3 (0.16-1.47); MONOCYTES PERCENT AUTO 3 % (4-13); Mean Corpuscular HGB Conc 32.8 g/dL (31.5-36.5); Mean Corpuscular Volume 106 fL (80-100); NRBC ABSOLUTE 0.00 K/mm3 (0.00-0.02); NRBC Auto 0.0 /100 WBC (0.0-0.2); Platelet Count 127 K/mm3 (150-400); RDW Coefficient Variation 13.7 % (11.7-14.2); RDW Standard Deviation 53.8 fL (35.1-46.3)
[2025-06-03 05:29] LABS: EOSINOPHILS ABSOLUTE AUTO 0.00 K/mm3 (0.00-0.68); EOSINOPHILS PERCENT AUTO 0 % (0-6); IMMATURE GRAN ABSOLUTE AUTO 0.04 K/mm3 (0.00-0.10); IMMATURE GRAN PERCENT AUTO 0 % (0-1); NEUTROPHILS ABSOLUTE AUTO 14.26 K/mm3 (1.96-9.15); NEUTROPHILS PERCENT AUTO 94 % (41-73)
[2025-06-03 05:43] VITALS: BP 110/41
[2025-06-03 05:49] LABS: BAND PERCENT MAN 16 % (0-8); BASOPHILS ABSOLUTE MAN 0.00 K/mm3 (0.00-0.23); BASOPHILS PERCENT MAN 0 % (0-2); EOSINOPHILS ABSOLUTE MAN 0.15 K/mm3 (0.00-0.68); EOSINOPHILS PERCENT MAN 1 % (0-6); LYMPHOCYTES % ATYPICAL MANUAL 1 % (0-0); LYMPHOCYTES ABSOLUTE MAN 1.06 K/mm3 (0.84-5.20); LYMPHOCYTES PERCENT MAN 6 % (21-46); METAMYELOCYTE ABSOLUTE MAN 0.15 K/mm3 (0.00-0.00); METAMYELOCYTE PERCENT MAN 1 % (0-0); MONOCYTES ABSOLUTE MAN 0.15 K/mm3 (0.16-1.47); MONOCYTES PERCENT MAN 1 % (4-13); NEUTROPHILS ABSOLUTE MAN 13.67 K/mm3 (1.96-9.15); SEG NEUTROPHILS PERCENT MAN 74 % (41-73)
[2025-06-03 06:05] LABS: Anion Gap 9.0 mmol/L (3-11); Blood Urea Nitrogen 44.0 mg/dL (8-24); CO2, Blood 25.0 mmol/L (21-32); Calcium, Blood 8.6 mg/dL (8.5-10.1); Chloride, Blood 107.0 mmol/L (98-108); Creatinine, Blood 1.83 mg/dL (0.60-1.20); Glucose, Blood 155.0 mg/dL (70-99); Potassium, Blood 5.4 mmol/L (3.5-5.5); Sodium, Blood 136.0 mmol/L (136-145)
[2025-06-03 07:43] VITALS: BP 131/47
[2025-06-03] MEDS ORDERED: Enoxaparin 40 MG/0.4 ML SYR SC SCH (09:00)
[2025-06-03] MEDS ORDERED: Isosorbide Mononitrate 60 MG TABCR PO SCH (09:00)
[2025-06-03 11:17] VITALS: BP 106/49
[2025-06-03] MEDS ORDERED: NS 250 ML IV PRN (13:50)
[2025-06-03] MEDS ORDERED: Piperacillin/Tazobactam Sod 3.375 GM in NS 100 ML IV SCH (14:00)
--- NOTE | 2025-06-03 17:21 | NUR ---
SHIFT SUMMARY PT A&OX4, AMB W/ ASSIST, VOIDING, AND DENIED PAIN. PT DESAT THIS AM TO LOW 80'S AND WAS PLACED ON 7L O2. PT SUCCESSFULLY TITRATED DOWN TO 4.5L O2 SATS 89-90%. PT HAD ST EVAL TO RULE OUT ASPIRATION. REPEAT CHEST XRAY AND FIRST PART OF STRESS TEST COMPLETE. PT TO BE NPO AFTER MIDNIGHT. PT HAD BIGEMINY X2 APPROX AT 1430, PT ASYMPTOMATIC. THIS RN NOTIFIED AND TELE STRIPS IN EMAR FOR REVIEW. IV ABX INFUSED PER ORDER. CALL LIGHT WITHIN REACH AND PT ABLE TO MAKE NEEDS KNOWN.
[2025-06-03 17:22] VITALS: BP 109/65
[2025-06-03 19:19] VITALS: BP 113/44
--- NOTE | 2025-06-03 23:07 | NUR ---
1930 PT SLEEPING, NO TX GIVEN
[2025-06-04] VITALS (52 sets, daily range): BP systolic 78–132; BP diastolic 40–94
[2025-06-04] MEDS ORDERED: Metoprolol Tartrate 1 MG/ML 5 ML VIAL IV ONE ×3 (00:35→10:45)
--- NOTE | 2025-06-04 01:32 | NUR ---
SPACE CONTROL AGENT REPORTS PATIENT CONVERTED FROM SINUS RHYTHM TO AFIB 130-[address] SORIA NOTIFIED AND REPORTS WILL PUT IN IV LOPRESSOR ORDER WITH PARAMETERS TO HOLD IF SBP < 105. IV LOPRESSOR 2.5 MG GIVEN BY IVY RN. RECHECK SBP 112/53 WITH AFIB 125-144.
--- NOTE | 2025-06-04 02:31 | NUR ---
TELE MONITOR REPORTS PATIENT AVERAGING AFIB 130'S. HOSPITLAIST DR SORIA ORDERED IV LOPRESSOR 2.5 MG X ONE AND GIVEN FOR SECOND TIME. WCTM.
--- NOTE | 2025-06-04 02:47 | NUR ---
PCU CHARGE REPORTS HR UP TO 140'S AFTER BEING 118 TO 130'S AND BACK DOWN. WCTM.
--- NOTE | 2025-06-04 04:16 | NUR ---
SHIFT SUMMARY PATIENT CONVERTED TO AFIB PER WIRELESS STORE MANAGER (SEE NOTE). HOSPITALIST DR SORIA ORDERED IV LOPRESSOR 2.5 MG GIVEN X TWO WITH MINIMAL EFFECT. ASYMPTOMATIC. DENIES CHEST PAIN, SOB, AND N/V. AFEBRILE. ON 4L O2 N/C AND BASELINE. PIV INTACT. IV ABX INFUSED X TWO. NPO FOR STRESS TEST PART TWO. PATIENT REPORTS HAND TREMORS SINCE HE HAS BEEN ADMITED. USES URINAL AT BEDSIDE. SLEPT MOST OF THE SHIFT. CALL LIGHT IN REACH. BED IN LOWEST POSITION. WILL CONTINUE TO MONITOR UNTIL DAY SHIFT NURSE ASSUMES CARE.
[2025-06-04 08:39] LABS: Hematocrit 33.1 % (37.0-53.0); Hemoglobin 11.1 g/dL (13.5-17.5); Mean Corpuscular HGB Conc 33.5 g/dL (31.5-36.5); Mean Corpuscular Volume 106 fL (80-100); NRBC ABSOLUTE 0.00 K/mm3 (0.00-0.02); NRBC Auto 0.0 /100 WBC (0.0-0.2); Platelet Count 118 K/mm3 (150-400); RDW Coefficient Variation 13.9 % (11.7-14.2); RDW Standard Deviation 53.5 fL (35.1-46.3)
[2025-06-04 09:03] LABS: BAND PERCENT MAN 3 % (0-8); BASOPHILS ABSOLUTE MAN 0.00 K/mm3 (0.00-0.23); BASOPHILS PERCENT MAN 0 % (0-2); EOSINOPHILS ABSOLUTE MAN 0.00 K/mm3 (0.00-0.68); EOSINOPHILS PERCENT MAN 0 % (0-6); LYMPHOCYTES ABSOLUTE MAN 0.27 K/mm3 (0.84-5.20); LYMPHOCYTES PERCENT MAN 2 % (21-46); MONOCYTES ABSOLUTE MAN 0.41 K/mm3 (0.16-1.47); MONOCYTES PERCENT MAN 3 % (4-13); NEUTROPHILS ABSOLUTE MAN 13.12 K/mm3 (1.96-9.15); SEG NEUTROPHILS PERCENT MAN 92 % (41-73)
[2025-06-04 09:06] LABS: Anion Gap 7.0 mmol/L (3-11); Blood Urea Nitrogen 69.0 mg/dL (8-24); CO2, Blood 27.0 mmol/L (21-32); Calcium, Blood 8.4 mg/dL (8.5-10.1); Chloride, Blood 105.0 mmol/L (98-108); Creatinine, Blood 3.66 mg/dL (0.60-1.20); Glucose, Blood 137.0 mg/dL (70-99); Potassium, Blood 5.3 mmol/L (3.5-5.5); Sodium, Blood 134.0 mmol/L (136-145)
[2025-06-04] MEDS ORDERED: NS 1,000 ML IV ONE (11:10)
--- NOTE | 2025-06-04 12:12 | NUR ---
DR MADERA CALLED DR MADERA AT 1105 D/T PT BP 78/49. ORDERS FOR NS BOLUS, STATUS CHANGE TO PCU, STAT ECHO AND TROPININ I. ORDERS ENTERED. BOLUS STARTED WIDE OPEN. NURSING DEVELOPMENT EDITOR NOTIFIED OF STAT ECHO. CARE ONGOING.
--- NOTE | 2025-06-04 12:15 | NUR ---
DR MADERA CALLED DR MADERA AT 1140. PT BP STILL SOFT IN THE 80-90'S AFTER 500ML BOLUS. ORDER TO CHANGE TO ICU. PT CONTINUES IN AFIB 120-130'S. OXYGEN DEMAND 9L ON VENTI MASK SPO2 91%. PT DENIED CHEST PAIN OR SOB. HE DID STATE HE HAD A HEADACHE. SKIN WARM AND DRY. FAMILY AT BEDSIDE AND NOTIFIED OF CHANGE. PORTABLE CHEST XRAY DONE. REPORT CALLED TO ELIZABETH PHELPS. PT TRANSFERED TI ICU 15 VIA BED WITH FAMILY IN ATTENDANCE. CARE ON GOING.
--- NOTE | 2025-06-04 12:27 | NUR ---
ICU TRANSFER 1205 - PT TRANSFERRED TO ICU 15. ARRIVES ON 10L SIMPLE MASK. ATRIAL FIBRILLATION RATE 120A-140S. PT A/O X4, FOLLOWS COMMANDS. BOLUS INFUSING. PT ENDORSES NEW PARTIAL VISION LOSS TO RIGHT EYE SINCE ADMISSION WITH NOTABLE PTOSIS, BILATERAL TREMORS NOTED R>L. FAMILY AT BEDSIDE.
[2025-06-04] MEDS ORDERED: NS 500 ML IV ONE ×2 (13:49→13:50)
--- NOTE | 2025-06-04 13:58 | NUR ---
STATUS UPDATE 500 ML NS BOLUS ADMINISTERED FOR BP 95/45 (55) PER NURSE NOTIFY ORDER PER DR. AU.
--- NOTE | 2025-06-04 14:04 | NUR ---
TREMORS PT CONTINUES TO EXHIBIT RIGHT SIDE TREMOR AND BILATERAL SPASTICITY WITH FINE MOTOR MOVEMENT DIFFICULTY. PT NOW ENDORSES THAT RIGHT EYELID PTOSIS IS BASELINE AND HAS PREVIOUSLY HAD SURGICAL PROCEDURE. MAINTAINS ABNORMALLY BLURRED VISION.
[2025-06-04 14:47] LABS: Prothrombin Time Results 11.4 Sec (9.7-11.5)
[2025-06-04] MEDS ORDERED: Dose Adjust by Pharmacy XX STA (15:06)
[2025-06-04] MEDS ORDERED: Heparin Sodium,Porcine/0.5 NS 500 ML IV SCH (15:10)
--- NOTE | 2025-06-04 17:46 | NUR ---
SHIFT SUMMARY PT A/O X4, DROWSY WITH RESTFUL PERIODS THROUGHOUT SHIFT. AFEBRILE. REMAINS IN ATRIAL FIBRILLATION 110S-140S - AMIODARONE GTT STARTED - WILL TITRATE DOWN AFTER 6 HOURS POST INITIATION PER JAN. BP SOFT WITH MAP INTERMITTENTLY 60-64 BUT NOT SUSTAINED - LEVOPHED ORDERED IF MAP SUSTAINS <65. HEPARIN GTT STARTED. HEART HEALTHY / EASY TO CHEW DIET - NPO FOR LUNCH BUT ABLE TO EAT DINNER. FAMILY REPORTED THAT PT'S TREMORS HAD BEEN AFFECTING HIS ABILITY TO FEED HIMSELF AND REQUIRED ASSISTANCE WITH MEALS. TREMORS APPEAR TO HAVE SOME IMPROVEMENT - PT ABLE TO MOSTLY EAT INDEPENDENTLY AFTER SET UP BUT TREMORS DID WORSEN HE GOT TIRED. HAMMER PLACED FOR RETENTION POST BLADDER SCAN. 1.5 LITER NS BOLUS TOTAL. NO BM FOR SHIFT. PIV TO LAC. MIDLINE PLACED TO RUE. SCD'S IN PLACE. ASPIRATION PRECAUTIONS IN PLACE - NO STRAWS - MEDS WHOLE IN APPLESAUCE. CHG BATH PERFORMED WITH GOWN/LINEN CHANGE. SOME SACRAL AND SCROTAL REDNESS WITH SCATTERED BRUISES BUT SKIN INTACT. ECHO/CXR/COAGS DONE. SAFETY, COMFORT, HYGIENE ADDRESSED.
--- NOTE | 2025-06-04 19:35 | NUR ---
ASSUMPTION OF CARE REPORT RECIEVED FROM DAY SHIFT NURSE. PT RESTING COMFORTABLY IN ROOM AT THIS TIME. NO COMPLAINTS OF CHEST PAIN OR SHORTNESS OF BREATH. WILL CONTINUE TO MONITOR.
[2025-06-04] MEDS ORDERED: Piperacillin/Tazobactam Sod 4.5 GM in NS 100 ML IV SCH (21:00)
[2025-06-05] VITALS (55 sets, daily range): BP systolic 97–171; BP diastolic 44–134
[2025-06-05] MEDS ORDERED: Dose Adjust by Pharmacy XX STA ×4 (00:07→21:26)
[2025-06-05] MEDS ORDERED: Heparin Sodium 5000 Units/ML 1ML MDV IV ONE (00:10)
--- NOTE | 2025-06-05 06:34 | NUR ---
SHIFT SUMMARY PT HAS TOLERATED SHIFT WITH NO SIGNIFICANT EVENTS OVERNIGHT. PT HAS BEEN ABLE TO REST MOST OF NIGHT WITH FEW INTERUPTIONS. PT BP BECAME SOFT AFTER FALLING ASLEEP AND WAS BREIFLY ON LEVOPHED. PT CURRENTLY OFF LEVOPHED AT THIS TIME. PT ALERT AND ORIENTED AND STATES NO COMPLAINTS OF CHEST PAIN OR SHORTNESS OF BREATH. PT APPEARS TO BE RESTING COMFORTABLY IN ROOM AT THIS TIME. WILL CONTINUE TO MONITOR UNTIL REPORT PASSED TO DAY SHIFT TEAM.
[2025-06-05 07:00] LABS: BASOPHILS ABSOLUTE AUTO 0.05 K/mm3 (0.00-0.23); BASOPHILS PERCENT AUTO 0 % (0-2); EOSINOPHILS ABSOLUTE AUTO 0.02 K/mm3 (0.00-0.68); EOSINOPHILS PERCENT AUTO 0 % (0-6); Hematocrit 34.3 % (37.0-53.0); Hemoglobin 11.0 g/dL (13.5-17.5); IMMATURE GRAN ABSOLUTE AUTO 0.13 K/mm3 (0.00-0.10); IMMATURE GRAN PERCENT AUTO 1 % (0-1); LYMPHOCYTES ABSOLUTE AUTO 0.33 K/mm3 (0.84-5.20); LYMPHOCYTES PERCENT AUTO 3 % (21-46); MONOCYTES ABSOLUTE AUTO 0.66 K/mm3 (0.16-1.47); MONOCYTES PERCENT AUTO 5 % (4-13); Mean Corpuscular HGB Conc 32.1 g/dL (31.5-36.5); Mean Corpuscular Volume 109 fL (80-100); NEUTROPHILS ABSOLUTE AUTO 11.80 K/mm3 (1.96-9.15); NEUTROPHILS PERCENT AUTO 91 % (41-73); NRBC ABSOLUTE 0.00 K/mm3 (0.00-0.02); NRBC Auto 0.0 /100 WBC (0.0-0.2); Platelet Count 119 K/mm3 (150-400); RDW Coefficient Variation 13.9 % (11.7-14.2); RDW Standard Deviation 56.2 fL (35.1-46.3)
[2025-06-05 07:12] LABS: Anion Gap 8.0 mmol/L (3-11); Blood Urea Nitrogen 80.0 mg/dL (8-24); CO2, Blood 26.0 mmol/L (21-32); Calcium, Blood 7.8 mg/dL (8.5-10.1); Chloride, Blood 106.0 mmol/L (98-108); Creatinine, Blood 3.26 mg/dL (0.60-1.20); Glucose, Blood 136.0 mg/dL (70-99); Potassium, Blood 4.9 mmol/L (3.5-5.5); Sodium, Blood 135.0 mmol/L (136-145)
--- NOTE | 2025-06-05 10:38 | NUR ---
AM NOTE: THIS RN ASSUMED CARE OF PT AT APPROX 0700, BEDSIDE REPORT FROM ANAYA RN. PT ALERT, ORIENTED X4. WAINWRIGHT BUT ABLE TO MAKE NEEDS KNOWN. HR 110-130'S, AFIB ON MONITOR. AMIO GTT INFUSING PER EMAR. SBP 110-170'S, MAP >65. LEVOPHED REMAINS OFF THIS AM. PT ENDORSES "CHEST PAIN" TO LUQ FOLLOWING BREAKFAST. REPORTS THIS PAIN W/ INSPIRATION/COUGH AND FEELS "WHEEZY". LUNG SOUNDS COARSE THIS AM W/ SLIGHT INSPIRATORY WHEEZE. RT NOTIFIED, BREATHING TX AT THIS TIME. SPO2 >90% ON 6-12L VIA HFNC/OXYMASK. AFEBRILE. HEPARIN GTT INFUSING, RATE MANAGED BY PHARMACY. HAMMER CATH REMAINS IN PLACE FOR RETENTION, DRAINING TO GRAVITY. PT TOLERATING PO INTAKE, MEDS W/ APPLESAUCE. ASPIRATION PRECAUTIONS IN PLACE. NO OTHER NEEDS AT THIS TIME, FAMILY AT BEDSIDE. CALL LIGHT IN REACH.
--- NOTE | 2025-06-05 13:11 | NUR ---
PHYSICIAN CONTACT: PT C/O NO BM SINCE PRIOR TO ADMISSION. CALL TO DR. MADERA, ORDERS RECEIVED TO START DOCUSATE - SEE EMAR. NOTIFIED DR. MADERA THAT PT HAS ONE DOSE OF NORCO PER EMAR FOR PAIN W/ INSPIRATION & IS REPORTING VISUAL HALLUCINATIONS. FAMILY STATES HE WAS SEEING SHOES ON HIS FEET, PEOPLE WALKING IN THE ROOM THAT WERE NOT PRESENT, AND A YELLOW BLANKET ON HIS BED. ORDERS RECEIVED TO CHANGE PAIN MEDICATION TO OXYCODONE 2.5MG - SEE EMAR.
--- NOTE | 2025-06-05 18:11 | NUR ---
END OF SHIFT NOTE: NO ACUTE EVENTS THIS SHIFT. PT REMAINS A/OX4, ABLE TO MAKE NEEDS KNOWN TO STAFF. HR 100-120'S AT REST, UP TO 140'S W/ EXERTION. AMIO GTT COMPLETED THIS AFTERNOON, TRANSITIONED TO PO AMIO PER ORDERS. BP STABLE, MAP >65. SPO2 88-92% ON 4-10L VIA OXYMASK/HFNC. PT W/ STRONG, WET COUGH W/O SPUTUM PRODUCTION. EDUCATION ON INCENTIVE SPIROMETRY PROVIDED THIS SHIFT, PT COMPLETING IS THERAPY HOURLY. AFEBRILE. HEPARIN GTT INFUSING AT 20 U/KG/HR, MANAGED BY PHARMACY. HAMMER CATH REMAINS PATENT, DRAINING YELLOW URINE TO GRAVITY; APPROX 820ML OUTPUT. NO BM'S, BOWEL CARE IN PLACE. TOLERATING PO INTAKE WELL. CHG BATH COMPLETED, REPOSITIONING NEEDED. NO OTHER NEEDS AT THIS TIME, CALL LIGHT IN REACH AND FAMILY AT BEDSIDE.
--- NOTE | 2025-06-05 19:15 | NUR ---
ASSUMPTION OF CARE REPORT RECIEVED FROM DAY SHIFT NURSE. PT CURRENTLY RESTING IN BED, FAMILY AT BEDSIDE. PT APPEARS TO BE COMFORTABLE AT THIS TIME. NO COMPLAINTS OF CHEST PAIN OR SHORTNESS OF BREATH. CALL LIGHT IN REACH.
[2025-06-05] MEDS ORDERED: Piperacillin/Tazobactam Sod 4.5 GM in NS 100 ML IV SCH (21:00)
[2025-06-06] VITALS (19 sets, daily range): BP systolic 110–151; BP diastolic 45–82
[2025-06-06 04:18] LABS: BASOPHILS ABSOLUTE AUTO 0.01 K/mm3 (0.00-0.23); BASOPHILS PERCENT AUTO 0 % (0-2); EOSINOPHILS ABSOLUTE AUTO 0.00 K/mm3 (0.00-0.68); EOSINOPHILS PERCENT AUTO 0 % (0-6); Hematocrit 31.2 % (37.0-53.0); Hemoglobin 10.2 g/dL (13.5-17.5); IMMATURE GRAN ABSOLUTE AUTO 0.08 K/mm3 (0.00-0.10); IMMATURE GRAN PERCENT AUTO 1 % (0-1); LYMPHOCYTES ABSOLUTE AUTO 0.15 K/mm3 (0.84-5.20); LYMPHOCYTES PERCENT AUTO 1 % (21-46); MONOCYTES ABSOLUTE AUTO 0.25 K/mm3 (0.16-1.47); MONOCYTES PERCENT AUTO 2 % (4-13); Mean Corpuscular HGB Conc 32.7 g/dL (31.5-36.5); Mean Corpuscular Volume 106 fL (80-100); NEUTROPHILS ABSOLUTE AUTO 12.44 K/mm3 (1.96-9.15); NEUTROPHILS PERCENT AUTO 96 % (41-73); NRBC ABSOLUTE 0.00 K/mm3 (0.00-0.02); NRBC Auto 0.0 /100 WBC (0.0-0.2); Platelet Count 135 K/mm3 (150-400); RDW Coefficient Variation 13.7 % (11.7-14.2); RDW Standard Deviation 53.2 fL (35.1-46.3)
[2025-06-06 04:42] LABS: Anion Gap 8.0 mmol/L (3-11); Blood Urea Nitrogen 81.0 mg/dL (8-24); CO2, Blood 23.0 mmol/L (21-32); Calcium, Blood 7.6 mg/dL (8.5-10.1); Chloride, Blood 106.0 mmol/L (98-108); Creatinine, Blood 2.57 mg/dL (0.60-1.20); Glucose, Blood 179.0 mg/dL (70-99); Potassium, Blood 4.8 mmol/L (3.5-5.5); Sodium, Blood 132.0 mmol/L (136-145)
[2025-06-06] MEDS ORDERED: Dose Adjust by Pharmacy XX STA (04:58)
--- NOTE | 2025-06-06 05:51 | NUR ---
SHIFT ASSESSMENT PT HAS TOLERATED SHIFT WELL WITHOUT ANY SIGNIFICANT EVENTS OVERNIGHT. PTS O2 SATS, AND BLOOD PRESSURE HAVE REMAINED WITHIN NORMAL LIMITS. PTS PULSE HAS GRADUALY COME DOWN THROUGH SHIFT AND HAS BEEN REMAINING 90s-100s. PT CURRENTLY RESTING COMFORTABLY IN ROOM. CALL LIGHT WITHIN REACH.
[2025-06-06] MEDS ORDERED: Piperacillin/Tazobactam Sod 4.5 GM in NS 100 ML IV SCH (08:00)
--- NOTE | 2025-06-06 15:01 | NUR ---
UPDATE STATUS CHANGED TO PCU THIS AM. BP REMAINS STABLE. HR REMAINS AFIB 90'S. O2 SATS REMAIN ABOVE 90% ON 7L NC. HAMMER REMAINS PATENT AND DRAINING CLEAR YELLOW URINE. NO BM THIS SHIFT. PT UP WITH THERAPY AT THE SIDE OF THE BED. PT ABLE TO REPOSITION HIMSELF IN THE BED. FAMILY AT BEDSIDE ALL SHIFT. REPORT GIVEN TO SHELIA PHELPS TO ASSUME CARE. PT TO BE TAKEN VIA BED.
--- NOTE | 2025-06-07 03:49 | NUR ---
SHIFT SUMMARY PATIENT IS ALERT AND ORIENTED, CALLS APPROPRIATELY, AND IS ABLE TO MAKE HIS NEEDS KNOWN. PATIENT IS SATTING >92% ON 3LPM VIA FACEMASK WITH NO C/O SOB, PATIENT DESATTS WITH EXERTION BUT IS ABLE TO RECOVER QUICKLY. TELEMETRY IN PLACE; AFIB WITH RATE 80'S-90'S. VSS. PATIENT UP TO BSC COMMODE TONIGHT, PASSED FLATUENCE BUT UNSUCESSFUL WITH BM. HAMMER CATHETER IN PLACE FOR RETENTION IS PATENT AND DRAINING TO GRAVITY-PER REPORT DOCTOR WANTS HAMMER TO REMAIN IN PLACE. NO ACUTE EVENTS NOTED OVERNIGHT. BED IS LOCKED IN THE LOWEST POSITION WITH CALL LIGHT IN REACH. CARE IS ONGOING.
[2025-06-07 04:34] VITALS: BP 111/65
[2025-06-07 05:14] LABS: BASOPHILS ABSOLUTE AUTO 0.03 K/mm3 (0.00-0.23); BASOPHILS PERCENT AUTO 0 % (0-2); EOSINOPHILS ABSOLUTE AUTO 0.00 K/mm3 (0.00-0.68); EOSINOPHILS PERCENT AUTO 0 % (0-6); Hematocrit 34.7 % (37.0-53.0); Hemoglobin 11.4 g/dL (13.5-17.5); IMMATURE GRAN ABSOLUTE AUTO 0.17 K/mm3 (0.00-0.10); IMMATURE GRAN PERCENT AUTO 1 % (0-1); LYMPHOCYTES ABSOLUTE AUTO 0.30 K/mm3 (0.84-5.20); LYMPHOCYTES PERCENT AUTO 2 % (21-46); MONOCYTES ABSOLUTE AUTO 0.67 K/mm3 (0.16-1.47); MONOCYTES PERCENT AUTO 4 % (4-13); Mean Corpuscular HGB Conc 32.9 g/dL (31.5-36.5); Mean Corpuscular Volume 106 fL (80-100); NEUTROPHILS ABSOLUTE AUTO 15.84 K/mm3 (1.96-9.15); NEUTROPHILS PERCENT AUTO 93 % (41-73); NRBC ABSOLUTE 0.00 K/mm3 (0.00-0.02); NRBC Auto 0.0 /100 WBC (0.0-0.2); Platelet Count 204 K/mm3 (150-400); RDW Coefficient Variation 13.7 % (11.7-14.2); RDW Standard Deviation 53.5 fL (35.1-46.3)
[2025-06-07 05:59] LABS: Anion Gap 8.0 mmol/L (3-11); Blood Urea Nitrogen 94.0 mg/dL (8-24); CO2, Blood 25.0 mmol/L (21-32); Calcium, Blood 7.8 mg/dL (8.5-10.1); Chloride, Blood 108.0 mmol/L (98-108); Creatinine, Blood 2.26 mg/dL (0.60-1.20); Glucose, Blood 169.0 mg/dL (70-99); Magnesium, Blood 3.3 mg/dL (1.6-2.4); Potassium, Blood 4.7 mmol/L (3.5-5.5); Sodium, Blood 136.0 mmol/L (136-145); Thyroid Stimulating Hormone 0.938 uIU/mL (0.360-4.800)
--- NOTE | 2025-06-07 06:40 | NUR ---
DR. SORIA NOTIFIED OF PATIENTS MAGNESIUM OF 3.3-NO NEW ORDERS OR CHANGES AT THIS TIME.
[2025-06-07 07:25] VITALS: BP 160/85
--- NOTE | 2025-06-07 15:14 | NUR ---
Upon receiving a referral for spiritual care, I visited the patient. He told me about his medical problems, and the plan of care moving forward. He then shares about his 's medical problems and how he is her only means of transportation. He states that his yarsanism family ([facility]) has by helping her while he is in the hospital, driving her where she needs to go and bringing her meals. He speaks about his son who is a insulation board coater operator in [place] and that he will come for a couple of days as well to help her. He voices his concerns about going with to a SNF for an extended period of time because of his 's needs. I normalize his experience, reinforce helpful attitudes and practices and provided therapeutic listening and prayer. The patient repsonded well and showed signs of reduced stress.
--- NOTE | 2025-06-07 17:24 | NUR ---
REPORT TO MEDICAL FLOOR RN FOR IN HOUSE TRANSFER. A/A/OX4, FAMILY AT BEDSIDE. TO FLOOR VIA WHEELCHAIR ON 3L VIA NC.
--- NOTE | 2025-06-07 17:58 | NUR ---
THIS NURSE AGREES WITH PREVIOUS NURSE ASSESSMENT. PT RESTING COMFORTABLY ON 3 L NC WHILE EATING. NEEDS SIMPLE MASK WITH 3 L WHILE NOT EATING. PT HAS NO C/O PAIN OR SOB
[2025-06-07 19:16] VITALS: BP 127/74
[2025-06-07] MEDS ORDERED: Lactobacil 2-S.Thermo-Bifido 1 1 Cap PO SCH (21:00)
[2025-06-08 00:07] VITALS: BP 137/77
[2025-06-08 04:15] VITALS: BP 136/93
--- NOTE | 2025-06-08 04:32 | NUR ---
SHIFT SUMMARY: PT AOX4, 1PA W FWW IN TO THE RESTROOM. SATTING 95 ON 3L WITH SIMPLE O2 MASK. CALLS APPROPRIATELY AND ABLE TO MAKE NEEDS KNOWN. COOPERATIVE IN CARE AND VERY PLEASANT. PT STATES HE IS VERY EXHAUSTED FROM TRANSFERRING AROUND ALL DAY BUT OVER ALL FEELS BETTER. TOLERATING MEDICATIONS WELL, NO ACUTE OVERNIGHT EVENTS. SLEPT WELL. HAS BEEN CALLING TO USE THE RESTROOM AND VOIDING, PASSING GAS BUT NO BM. DENIES SOB OR CP. PT IN BED RESTING, BED IN LOWEST POSITION, CALL LIGHT IN REACH. CONTINUING CARE.
[2025-06-08 04:34] LABS: BASOPHILS ABSOLUTE AUTO 0.02 K/mm3 (0.00-0.23); BASOPHILS PERCENT AUTO 0 % (0-2); EOSINOPHILS ABSOLUTE AUTO 0.01 K/mm3 (0.00-0.68); EOSINOPHILS PERCENT AUTO 0 % (0-6); Hematocrit 34.5 % (37.0-53.0); Hemoglobin 11.4 g/dL (13.5-17.5); IMMATURE GRAN ABSOLUTE AUTO 0.26 K/mm3 (0.00-0.10); IMMATURE GRAN PERCENT AUTO 1 % (0-1); LYMPHOCYTES ABSOLUTE AUTO 0.60 K/mm3 (0.84-5.20); LYMPHOCYTES PERCENT AUTO 3 % (21-46); MONOCYTES ABSOLUTE AUTO 1.50 K/mm3 (0.16-1.47); MONOCYTES PERCENT AUTO 8 % (4-13); Mean Corpuscular HGB Conc 33.0 g/dL (31.5-36.5); Mean Corpuscular Volume 106 fL (80-100); NEUTROPHILS ABSOLUTE AUTO 15.78 K/mm3 (1.96-9.15); NEUTROPHILS PERCENT AUTO 87 % (41-73); NRBC ABSOLUTE 0.00 K/mm3 (0.00-0.02); NRBC Auto 0.0 /100 WBC (0.0-0.2); Platelet Count 207 K/mm3 (150-400); RDW Coefficient Variation 13.8 % (11.7-14.2); RDW Standard Deviation 53.8 fL (35.1-46.3)
[2025-06-08 04:54] LABS: Anion Gap 4.0 mmol/L (3-11); Blood Urea Nitrogen 92.0 mg/dL (8-24); CO2, Blood 28.0 mmol/L (21-32); Calcium, Blood 7.7 mg/dL (8.5-10.1); Chloride, Blood 111.0 mmol/L (98-108); Creatinine, Blood 2.16 mg/dL (0.60-1.20); Glucose, Blood 130.0 mg/dL (70-99); Potassium, Blood 4.7 mmol/L (3.5-5.5); Sodium, Blood 138.0 mmol/L (136-145)
[2025-06-08 07:06] VITALS: BP 136/99
[2025-06-08] MEDS ORDERED: Piperacillin/Tazobactam Sod 4.5 GM in NS 100 ML IV SCH (09:00)
--- NOTE | 2025-06-08 14:10 | NUR ---
SHIFT SUMMARY: PT VOIDING WITH 1 PAST UP TO THE BTHROOM. PT TAKES MEDS WHOLE ONE AT A TIME IN IN APPLE SAUCE. BARIUM SWALLOW TEST COMPLETED ON PT TODAY. FAMILY AT BEDSIDE THROUGH OUT MOST OF SHIFT. PT IS ON 3 L NC.
[2025-06-08 14:47] VITALS: BP 150/87
[2025-06-08 19:15] VITALS: BP 154/78
[2025-06-08] MEDS ORDERED: NS 100 ML IV ONE (22:52)
[2025-06-08 23:26] VITALS: BP 176/89
--- NOTE | 2025-06-09 02:20 | NUR ---
TELE MONITOR REPORTS FIVE BEAT RUN OF PVC AND BACK TO AFIB 97. PATIENT UP TO BR WITH ASSIST. WCTM.
[2025-06-09 04:01] VITALS: BP 172/73
--- NOTE | 2025-06-09 04:21 | NUR ---
SHIFT SUMMARY PATIENT HAD NO ACUTE CHANGES. ALERT ORIENTED AND SBA TO BR. DENIES CHEST PAIN, SOB, AND N/V. ON 3L O2 NC. POWERGLIDE RU ARM INTACT. IV ABX INFUSED. VSS/AFEBRILE. TAKES MEDS IN APPLESAUCE X ONE EACH. FAMILY PRESENT AT SHIFT CHANGE. PATIENT ABLE TO SLEEP AFTER FAMILY LEFT. CALL LIGHT IN REACH. BED IN LOWEST POSITION. WILL CONTINUE TO MONITOR UNTIL DAY SHIFT NURSE ASSUMES CARE.
[2025-06-09 04:47] LABS: BASOPHILS ABSOLUTE AUTO 0.05 K/mm3 (0.00-0.23); BASOPHILS PERCENT AUTO 0 % (0-2); EOSINOPHILS ABSOLUTE AUTO 0.03 K/mm3 (0.00-0.68); EOSINOPHILS PERCENT AUTO 0 % (0-6); Hematocrit 34.5 % (37.0-53.0); Hemoglobin 11.6 g/dL (13.5-17.5); IMMATURE GRAN ABSOLUTE AUTO 0.48 K/mm3 (0.00-0.10); IMMATURE GRAN PERCENT AUTO 3 % (0-1); LYMPHOCYTES ABSOLUTE AUTO 0.55 K/mm3 (0.84-5.20); LYMPHOCYTES PERCENT AUTO 3 % (21-46); MONOCYTES ABSOLUTE AUTO 1.26 K/mm3 (0.16-1.47); MONOCYTES PERCENT AUTO 7 % (4-13); Mean Corpuscular HGB Conc 33.6 g/dL (31.5-36.5); Mean Corpuscular Volume 105 fL (80-100); NEUTROPHILS ABSOLUTE AUTO 15.15 K/mm3 (1.96-9.15); NEUTROPHILS PERCENT AUTO 87 % (41-73); NRBC ABSOLUTE 0.00 K/mm3 (0.00-0.02); NRBC Auto 0.0 /100 WBC (0.0-0.2); Platelet Count 215 K/mm3 (150-400); RDW Coefficient Variation 13.7 % (11.7-14.2); RDW Standard Deviation 53.6 fL (35.1-46.3)
[2025-06-09 06:39] LABS: Anion Gap 8.0 mmol/L (3-11); Blood Urea Nitrogen 75.0 mg/dL (8-24); CO2, Blood 25.0 mmol/L (21-32); Calcium, Blood 7.7 mg/dL (8.5-10.1); Chloride, Blood 113.0 mmol/L (98-108); Creatinine, Blood 1.83 mg/dL (0.60-1.20); Glucose, Blood 151.0 mg/dL (70-99); Potassium, Blood 4.5 mmol/L (3.5-5.5); Sodium, Blood 141.0 mmol/L (136-145)
[2025-06-09 07:45] VITALS: BP 172/80
[2025-06-09 11:40] VITALS: BP 178/90
[2025-06-09 16:33] VITALS: BP 159/99
--- NOTE | 2025-06-09 16:48 | NUR ---
NOTE PT RESTING QUIETLY. NO COUGHING OR WET VOICE NOTED WITH EATING/DRINKING. VSS. TOOK A SHOWER TODAY. TOLERATED WELL. WORKED WITH PT/OT WELL. FAMILY IN AND OUT. PT DID STATE HE DOESN'T WANT TO GO TO SNF BECAUSE HE HAS" WORK TO DO AT HOME." BED LOW AND LOCKED, SLIPPY SOCKS ON FEET AND CALL LIGHT WITH IN REACH, CARE ONGOING.
[2025-06-09 19:43] VITALS: BP 156/99
[2025-06-09] MEDS ORDERED: Isosorbide Mononitrate 60 MG TABCR PO SCH (21:00)
[2025-06-09 23:49] VITALS: BP 154/92
--- NOTE | 2025-06-10 02:06 | NUR ---
LITHOPONE CHARGER REPORTS BIGEMINY WITH PVC AND BACK TO AFIB LOW 100'S. PATIENT RESTING. WCTM.
[2025-06-10] MEDS ORDERED: Ondansetron HCl 2 MG / ML 2ML Vial IV PRN (02:45)
--- NOTE | 2025-06-10 04:01 | NUR ---
SHIFT SUMMARY PATIENT HAD NO ACUTE CHANGES. ALERT ORIENTED AND ONE ASSIST W/FWW TO BR. POWERGLIDE RU ARM INTACT. IV ABX INFUSED. DENIES CHEST PAIN AND SOB. VSS/AFEBRILE. SIMETHICONE 80 MG GIVEN FOR POTENTIAL GAS WITHOUT EFFECT. NAUSEOUS X ONE AND IV ZOFRAN 4 MG GIVEN PER EMAR WITH GOOD EFFECT. TELE MONITOR AFIB 90'S TO LOW 100'S. ON 3L O2 AND BASELINE. SPOUSE AND SON AT BEDSIDE AT SHIFT CHANGE. SLEPT MOST OF THE SHIFT. CALL LIGHT IN REACH. BED IN LOWEST POSITION. WILL CONTINUE TO MONITOR UNTIL DAY SHIFT NURSE ASSUMES CARE.
[2025-06-10 04:15] VITALS: BP 157/89
[2025-06-10 05:11] LABS: BASOPHILS ABSOLUTE AUTO 0.04 K/mm3 (0.00-0.23); BASOPHILS PERCENT AUTO 0 % (0-2); EOSINOPHILS ABSOLUTE AUTO 0.21 K/mm3 (0.00-0.68); EOSINOPHILS PERCENT AUTO 2 % (0-6); Hematocrit 34.3 % (37.0-53.0); Hemoglobin 11.4 g/dL (13.5-17.5); IMMATURE GRAN ABSOLUTE AUTO 0.56 K/mm3 (0.00-0.10); IMMATURE GRAN PERCENT AUTO 4 % (0-1); LYMPHOCYTES ABSOLUTE AUTO 0.52 K/mm3 (0.84-5.20); LYMPHOCYTES PERCENT AUTO 4 % (21-46); MONOCYTES ABSOLUTE AUTO 0.90 K/mm3 (0.16-1.47); MONOCYTES PERCENT AUTO 7 % (4-13); Mean Corpuscular HGB Conc 33.2 g/dL (31.5-36.5); Mean Corpuscular Volume 106 fL (80-100); NEUTROPHILS ABSOLUTE AUTO 11.13 K/mm3 (1.96-9.15); NEUTROPHILS PERCENT AUTO 83 % (41-73); NRBC ABSOLUTE 0.00 K/mm3 (0.00-0.02); NRBC Auto 0.0 /100 WBC (0.0-0.2); Platelet Count 216 K/mm3 (150-400); RDW Coefficient Variation 13.6 % (11.7-14.2); RDW Standard Deviation 52.9 fL (35.1-46.3)
[2025-06-10 05:37] LABS: Anion Gap 8.0 mmol/L (3-11); Blood Urea Nitrogen 55.0 mg/dL (8-24); CO2, Blood 25.0 mmol/L (21-32); Calcium, Blood 7.9 mg/dL (8.5-10.1); Chloride, Blood 110.0 mmol/L (98-108); Creatinine, Blood 1.63 mg/dL (0.60-1.20); Glucose, Blood 142.0 mg/dL (70-99); Potassium, Blood 4.2 mmol/L (3.5-5.5); Sodium, Blood 139.0 mmol/L (136-145)
[2025-06-10 07:16] VITALS: BP 170/94
--- NOTE | 2025-06-10 10:01 | NUR ---
ASSUMED CARE OF PATIENT AT 0700. PATIENT AWAKE, ALERT AND ORIENTED. RESTING IN BED AT THIS TIME. CALL LIGHT WITH REACH.
[2025-06-10 11:49] VITALS: BP 128/80
[2025-06-10 15:25] VITALS: BP 135/69
--- NOTE | 2025-06-10 17:49 | NUR ---
PATIENT WITH UNEVENTFUL SHIFT TODAY. NO CHANGES FROM INITIAL ASSESSMENT. UP TO CHAIR AND EDGE OF BED FOR MEALS. AMBULATED TO BATHROOM WITH FWW AND SBA. STEADY BUT WEAK GAIT. MEDICATED FOR PAIN ONCE THIS SHIFT AND NAUSEA ONCE THIS SHIFT. CONGESTED COUGH REMAINS. O2 3L/NC (PATIENT BASELINE) O2 SAT 92-95%. FAMILY AT BEDSIDE OFF AND ON TODAY. DENIES ANY FURTHER CP. NOTED INCREASED SHORTNESS OF BREATH WITH ACTIVITY. PATIENT STATES THIS IS NO NEW FOR HIM. CALL LIGHT WITHIN REACH
--- NOTE | 2025-06-10 18:28 | NUR ---
Patient is resting in bed with family at bedside. Call light in reach, room is clean, and pt has fresh water.
[2025-06-10 20:03] VITALS: BP 141/94
[2025-06-11 00:07] VITALS: BP 117/59
[2025-06-11 03:29] LABS: BASOPHILS ABSOLUTE AUTO 0.05 K/mm3 (0.00-0.23); BASOPHILS PERCENT AUTO 0 % (0-2); EOSINOPHILS ABSOLUTE AUTO 0.35 K/mm3 (0.00-0.68); EOSINOPHILS PERCENT AUTO 2 % (0-6); Hematocrit 34.2 % (37.0-53.0); Hemoglobin 11.1 g/dL (13.5-17.5); IMMATURE GRAN ABSOLUTE AUTO 0.46 K/mm3 (0.00-0.10); IMMATURE GRAN PERCENT AUTO 2 % (0-1); LYMPHOCYTES ABSOLUTE AUTO 0.86 K/mm3 (0.84-5.20); LYMPHOCYTES PERCENT AUTO 4 % (21-46); MONOCYTES ABSOLUTE AUTO 1.13 K/mm3 (0.16-1.47); MONOCYTES PERCENT AUTO 6 % (4-13); Mean Corpuscular HGB Conc 32.5 g/dL (31.5-36.5); Mean Corpuscular Volume 107 fL (80-100); NEUTROPHILS ABSOLUTE AUTO 16.99 K/mm3 (1.96-9.15); NEUTROPHILS PERCENT AUTO 86 % (41-73); NRBC ABSOLUTE 0.00 K/mm3 (0.00-0.02); NRBC Auto 0.0 /100 WBC (0.0-0.2); Platelet Count 248 K/mm3 (150-400); RDW Coefficient Variation 13.9 % (11.7-14.2); RDW Standard Deviation 54.8 fL (35.1-46.3)
--- NOTE | 2025-06-11 03:35 | NUR ---
SHIFT SUMM: PT HAS BEEN RELAXING THIS SHIFT AND WAS ABLE TO GET SOME MUCH NEEDED REST. PT IS ON CONTINUOUS PULSE OX AND MAINTAINING SATS ABOVE 92% THIS SHIFT AND ON 3L 02 NC. PT HAS HAD SOME COMPLAINTS OF NAUSEA AND PAIN AND MEDICATED PER EMAR. PT TOOK MEDS WELL WW/APPLE SAUCE. PT HAS BEEN USING THE URINAL AND IS A 1 PERSON W/FWW TO THE BATHROOM. PT HAS A PATENT PG TO THE [facility]. PT IS ON TELE A-FLUTTER IN THE 'S W/BBB. PT HAS CALL LIGHT IN REACH AND CALLS TO MAKE NEEDS KNOWN. BED LOW AND LOCKED FOR SAFETY.
[2025-06-11 03:55] LABS: Anion Gap 5.0 mmol/L (3-11); Blood Urea Nitrogen 54.0 mg/dL (8-24); CO2, Blood 28.0 mmol/L (21-32); Calcium, Blood 7.9 mg/dL (8.5-10.1); Chloride, Blood 109.0 mmol/L (98-108); Creatinine, Blood 1.85 mg/dL (0.60-1.20); Glucose, Blood 125.0 mg/dL (70-99); Potassium, Blood 4.7 mmol/L (3.5-5.5); Sodium, Blood 137.0 mmol/L (136-145)
[2025-06-11 04:43] VITALS: BP 144/68
[2025-06-11 07:15] VITALS: BP 134/64
[2025-06-11] MEDS ORDERED: NS 1,000 ML IV SCH (09:35)
--- NOTE | 2025-06-11 18:39 | NUR ---
DAY SHIFT SUMMARY: NO ACUTE EVENTS TO REPORT THIS SHIFT. PT A&O; CALM AND COOPERATIVE WITH CARE. MEDICATED FOR NAUSEA PER EMAR. NS X1L STARTED THIS SHIFT; AFTER APPROX 700ML PATIENT BECAME WHEEZY & REQUIRED BREATHING TREATMENT; FLUIDS D/C'D AFTERWARD PER HOSPITALIST (DR MAIN). FAMILY AT BEDSIDE T/O SHIFT. PT USES URINAL AT BEDSIDE. IV ABX CONTINUING. EXPECT HOME c HOME HEALTH AT DISCHARGE. BED LOW & LOCKED; CALL LIGHT WITHIN REACH. WCTM.
[2025-06-11 19:20] VITALS: BP 142/66
[2025-06-12] VITALS (7 sets, daily range): BP systolic 126–148; BP diastolic 60–87
--- NOTE | 2025-06-12 03:12 | NUR ---
SHIFT SUMM: PT HAS HAD A RESTFUL EVENING AND WAS ABLE TO GET SOME REST THIS SHIFT. PT MAINTAINED SATS ABOVE 92% ON CONT PULSE OX AND 3L OXY MASK. PT IS 1 SBA TO THE BATHROOM W//FWW AND USES URINAL AT BEDSIDE. PT HAS A PATENT PG TO THE [place]. PT STILL HAS SOME CONGESTION WITH A PRODUCTIVE COUGH. PT HAD A BM THIS SHIFT. PT WAS MEDICATED FOR PAIN AND NAUSEA PER EMAR. CALL LIGHT IN REACH AND BED LOW AND LOCKED FOR SAFETY.
[2025-06-12 03:41] LABS: BASOPHILS ABSOLUTE AUTO 0.04 K/mm3 (0.00-0.23); BASOPHILS PERCENT AUTO 0 % (0-2); EOSINOPHILS ABSOLUTE AUTO 0.36 K/mm3 (0.00-0.68); EOSINOPHILS PERCENT AUTO 2 % (0-6); Hematocrit 33.4 % (37.0-53.0); Hemoglobin 10.8 g/dL (13.5-17.5); IMMATURE GRAN ABSOLUTE AUTO 0.41 K/mm3 (0.00-0.10); IMMATURE GRAN PERCENT AUTO 2 % (0-1); LYMPHOCYTES ABSOLUTE AUTO 0.84 K/mm3 (0.84-5.20); LYMPHOCYTES PERCENT AUTO 3 % (21-46); MONOCYTES ABSOLUTE AUTO 1.24 K/mm3 (0.16-1.47); MONOCYTES PERCENT AUTO 5 % (4-13); Mean Corpuscular HGB Conc 32.3 g/dL (31.5-36.5); Mean Corpuscular Volume 107 fL (80-100); NEUTROPHILS ABSOLUTE AUTO 21.91 K/mm3 (1.96-9.15); NEUTROPHILS PERCENT AUTO 88 % (41-73); NRBC ABSOLUTE 0.00 K/mm3 (0.00-0.02); NRBC Auto 0.0 /100 WBC (0.0-0.2); Platelet Count 263 K/mm3 (150-400); RDW Coefficient Variation 14.1 % (11.7-14.2); RDW Standard Deviation 55.4 fL (35.1-46.3)
[2025-06-12 03:56] LABS: Anion Gap 5.0 mmol/L (3-11); Blood Urea Nitrogen 56.0 mg/dL (8-24); CO2, Blood 28.0 mmol/L (21-32); Calcium, Blood 7.9 mg/dL (8.5-10.1); Chloride, Blood 108.0 mmol/L (98-108); Creatinine, Blood 1.91 mg/dL (0.60-1.20); Glucose, Blood 129.0 mg/dL (70-99); Potassium, Blood 4.8 mmol/L (3.5-5.5); Sodium, Blood 136.0 mmol/L (136-145)
--- NOTE | 2025-06-12 07:25 | NUR ---
ASSUMPTION OF CARE: THIS RN ASSUMED CARE OF PATIENT c VANNESSA TOBAR ORIENTING. AWAKE DURING SHIFT CHANGE REPORT. LYING IN BED c HOB ELEVATED. BREATHING EVEN AND UNLABORED c 3LPM/NC. MOST RECENT TELE STRIP IN CHART READS A-FLUTTER c PVCs @89bpm. BED IN LOWEST POSITION. CALL LIGHT WITHIN REACH. ACUTE NEEDS MET.
[2025-06-12] MEDS ORDERED: NS 100 ML IV ONE (14:56)
[2025-06-12] MEDS ORDERED: Ipratropium/Albuterol SulF 2.5-0.5MG/3 ML Amp INH SCH (16:20)
--- NOTE | 2025-06-12 16:24 | NUR ---
SHIFT SUMMARY: A&OX4 THIS SHIFT. COOPERATIVE WITH CARE PROVIDED. PT REMAINS ON 3.5L OF O2 VIA NASAL CANNULA. O2 SATS >90% THIS SHIFT. DENIES CHEST PAIN AND/OR DISCOMFORT, BUT DOES GET SHORT OF BREATH WITH EXERSION. PT HAS GOTTEN UP TO THE EOB MULTIPLE TIMES THIS SHIFT AND AMBULATES TO THE BATHROOM TO VOID WITH STAFF ASSIST. SPOUSE IN ROOM THROUGHOUT DAY VISITING. LYING IN BED AT THIS TIME. BREATHING EQUAL AND UNLABORED. BED IN THE LOWEST POSITION. CALL LT NEAR.
[2025-06-13 03:38] VITALS: BP 149/77
--- NOTE | 2025-06-13 04:01 | NUR ---
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 PT HAS BEEN VERY COOPERATIVE WITH CARE, ASSESSMENTS, AND MEDICATIONS. PT CONTINUES TO BE AT 3L NC WHILE AWAKE AND 3L VIA OXYGEN MASK WHILE ASLEEP PT REPORTS BEING A MOUTH BREATHER. O2 SATS CONTINUE TO BE >=88%. PT DOES GET SOB W/ EXERTION. PT REMAINS ON TELE. RATE/RHYTHM WAS A FLUTTER AT 97 DURING AM SHIFT, IS NOW A FIB AT 88. PT DENIES CHEST PAIN OR DISCOMFORT. NORCO GIVEN 1X FOR 6/10 BACK PAIN. PT SLEPT SHORTLY AFTER. PT HAS BEEN ASLEEP FOR MOST OF THE SHIFT. CHEST RISE AND RESPIRATIONS NOTED. PT INTERMITTENTLY GETS UP TO USE THE RESTROOM WITH FWW AND 1PA. PT APPROPRIATELY USES CALL LIGHT FOR ASSISTANCE TO RESTROOM AND TO MAKE NEEDS KNOWN. BED RAILS UP X 2, BED IN LOWEST POSITION, BED WHEELS LOCKED, PERSONAL BELONGINGS AND CALL LIGHT WITHIN REACH FOR SAFETY.
[2025-06-13 05:28] LABS: BASOPHILS ABSOLUTE AUTO 0.07 K/mm3 (0.00-0.23); BASOPHILS PERCENT AUTO 0 % (0-2); EOSINOPHILS ABSOLUTE AUTO 0.19 K/mm3 (0.00-0.68); EOSINOPHILS PERCENT AUTO 1 % (0-6); Hematocrit 31.9 % (37.0-53.0); Hemoglobin 10.5 g/dL (13.5-17.5); IMMATURE GRAN ABSOLUTE AUTO 0.35 K/mm3 (0.00-0.10); IMMATURE GRAN PERCENT AUTO 1 % (0-1); LYMPHOCYTES ABSOLUTE AUTO 0.35 K/mm3 (0.84-5.20); LYMPHOCYTES PERCENT AUTO 1 % (21-46); MONOCYTES ABSOLUTE AUTO 1.84 K/mm3 (0.16-1.47); MONOCYTES PERCENT AUTO 6 % (4-13); Mean Corpuscular HGB Conc 32.9 g/dL (31.5-36.5); Mean Corpuscular Volume 106 fL (80-100); NEUTROPHILS ABSOLUTE AUTO 26.66 K/mm3 (1.96-9.15); NEUTROPHILS PERCENT AUTO 91 % (41-73); NRBC ABSOLUTE 0.00 K/mm3 (0.00-0.02); NRBC Auto 0.0 /100 WBC (0.0-0.2); Platelet Count 234 K/mm3 (150-400); RDW Coefficient Variation 13.9 % (11.7-14.2); RDW Standard Deviation 55.0 fL (35.1-46.3)
[2025-06-13 05:51] LABS: Anion Gap 6.0 mmol/L (3-11); Blood Urea Nitrogen 55.0 mg/dL (8-24); CO2, Blood 27.0 mmol/L (21-32); Calcium, Blood 7.6 mg/dL (8.5-10.1); Chloride, Blood 107.0 mmol/L (98-108); Creatinine, Blood 1.98 mg/dL (0.60-1.20); Glucose, Blood 135.0 mg/dL (70-99); Potassium, Blood 4.7 mmol/L (3.5-5.5); Sodium, Blood 135.0 mmol/L (136-145)
[2025-06-13 07:13] VITALS: BP 138/96
[2025-06-13 11:42] VITALS: BP 115/64
[2025-06-13] MEDS ORDERED: MetroNIDAZOLE 500MG/NS 100 ml 100 ML IV SCH (12:00)
[2025-06-13 15:34] VITALS: BP 127/61
[2025-06-13 19:23] VITALS: BP 128/77
[2025-06-13 20:08] LABS: Campylobacter Sp Not Detected (NOT DETECT); E. Coli O157 Not Detected (NOT DETECT); Enteroaggregative E. coli-EAEC Not Detected (NOT DETECT); Enteropathogenic E. coli-EPEC Not Detected (NOT DETECT); Enterotoxigenic E. coli-ETEC Not Detected (NOT DETECT); Salmonella Sp Not Detected (NOT DETECT); Shiga Toxin-prod E. coli-STEC Not Detected (NOT DETECT); Shigella/Enteroin E. coli-EIEC Not Detected (NOT DETECT); Vibrio Sp Not Detected (NOT DETECT)
--- NOTE | 2025-06-13 20:24 | NUR ---
END OF SHIFT SUMMARY: A&Ox4. PLEASANT AND COOPERATIVE WITH CARE. CALLS APPROPRIATELY AND IS ABLE TO ADVOCATE NEEDS EFFECTIVELY. CONTINENT OF BOWEL AND BLADDER; LBM TODAY c CONTINUED LOOSE STOOLS. C/O ABD PAIN c SOME NAUSEA s VOMITING. AMBULATES SBA c FWW FOR LINE MANAGEMENT. MEDS WHOLE c APPLESAUCE. C/O PAIN T/O DAY; MEDICATED PRN NORCO. TELE AFIB/AFLUTTER. MAINTAINING SPO2 >92% ON 3LPM/NC WHILE AWAKE AND OXIMASK WHEN SLEEPING. ADDITIONAL TESTING ORDERED BY DR. CARTER SECONDARY TO RISING WBC. STOOL CULTURE OBTAINED; POSITIVE FOR C-DIFF. CONTACT PRECAUTIONS INITIATED. SPUTUM Cx OBTAINED. 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 THEY ARE UPSET AST HEY FEEL THEY HAVE BEEN "LEFT OUT OF THE LOOP" ON MANY THIGS AND WERE UNDER THE IMPRESSION THEY WOULD BE GETTING A PHONE CALL FROM SOMEONE TODAY TO UPDATE THEM. CONVERSATION c PT, AND DR JERONIMO ABOUT DR JERONIMO CALLING DAVIN TOMORROW c UPDATE. THIS RN CALLED AND GAVE UPDATE; THEY HAD INITIALLY BEEN TOLD SPUTUM CULTURE WAS POSITIVE FOR PSEUDOMONAS WHEN IT WAS KLEBSIELLA. BROTHER REQUESTING: BLOOD CULTURES TO BE DRAWN, ASKING IF AFIB/AFLUTTER BEING ADDRESSED; POSSIBILITY OF ABLATION? CONCERNED THAT SCHEDULED 2-DAY BLOCKS LACK CONTINUITY OF CARE FOR PATIENTS. DID NOT DIVULGE. BY END OF PHONE CALL, BROTHER AND HIS SEEMED TO BE CALMED DOWN. DISCUSSED HAVING PATIENT AND HIS SIGN UP FOR PATIENT PORTAL AND GIVE ACCESS TO FAMILY TO FOLLOW RESULTS AND THE LIKE.
[2025-06-14 00:19] VITALS: BP 125/58
[2025-06-14 04:40] VITALS: BP 137/71
--- NOTE | 2025-06-14 05:01 | NUR ---
GENERAL INTERNAL MEDICINE PHYSICIAN SUMMARY PT IS A&OX4, VSS, EXCEPT SLIGHTLY ELEVATED BP. PT IS COOPERATIVE W/ CARE, ASSESSMENTS, AND MEDS. PT IS POSITIVE FOR C DIFF. PLACED ON CONTACT ENTERIC PRECAUTIONS AND RECEIVING ANTIBIOTICS. SEE EMAR FOR DETAILS. PT CONTINUES TO BE AT 3L NC WHILE AWAKE AND 3L VIA O2 MASK WHILE ASLEEP. 02 SATS CONTINUE TO BE >=88%. PT DOES GET SOB W/ EXERTION. PT REMAINS ON TELE. RATE/RHYTHM WAS A FIB AT 81. PT DENIES CHEST PAIN OR DISCOMFORT. PT GIVEN NORCO 1X FOR 6/10 PAIN AND SIMETHICONE 1X FOR GAS BY BREAK RN. PT SLEPT SHORTLY AFTER. CHEST RISE AND RESPIRATIONS NOTED. PT GIVEN ZOFRAN LATER IN SHIFT FOR NAUSEA. PT REPORTED FEELING "MUCH BETTER." PT GETS UP INTERMITTENTLY TO USE RESTROOM W/ FWW AND 1PA. CONTINUES TO HAVE LOOSE STOOLS. PT APPROPRIATELY USES CALL LIGHT FOR ASSISTANCE TO RESTROOM AND TO MAKE NEEDS KNOWN. BED RAILS UP X 2, BED IN LOWEST POSITION, BED WHEELS LOCKED, PERSONAL BELONGINGS AND CALL LIGHT WITHIN REACH FOR SAFETY.
[2025-06-14 05:16] LABS: BASOPHILS ABSOLUTE AUTO 0.05 K/mm3 (0.00-0.23); BASOPHILS PERCENT AUTO 0 % (0-2); EOSINOPHILS ABSOLUTE AUTO 0.12 K/mm3 (0.00-0.68); EOSINOPHILS PERCENT AUTO 0 % (0-6); Hematocrit 29.2 % (37.0-53.0); Hemoglobin 9.7 g/dL (13.5-17.5); IMMATURE GRAN ABSOLUTE AUTO 0.26 K/mm3 (0.00-0.10); IMMATURE GRAN PERCENT AUTO 1 % (0-1); LYMPHOCYTES ABSOLUTE AUTO 0.44 K/mm3 (0.84-5.20); LYMPHOCYTES PERCENT AUTO 2 % (21-46); MONOCYTES ABSOLUTE AUTO 1.59 K/mm3 (0.16-1.47); MONOCYTES PERCENT AUTO 6 % (4-13); Mean Corpuscular HGB Conc 33.2 g/dL (31.5-36.5); Mean Corpuscular Volume 104 fL (80-100); NEUTROPHILS ABSOLUTE AUTO 25.35 K/mm3 (1.96-9.15); NEUTROPHILS PERCENT AUTO 91 % (41-73); NRBC ABSOLUTE 0.00 K/mm3 (0.00-0.02); NRBC Auto 0.0 /100 WBC (0.0-0.2); Platelet Count 270 K/mm3 (150-400); RDW Coefficient Variation 13.8 % (11.7-14.2); RDW Standard Deviation 53.6 fL (35.1-46.3)
[2025-06-14 08:35] VITALS: BP 140/62
[2025-06-14 12:10] LABS: Alanine Aminotransfer (ALT/SGP 36.0 U/L (12-78); Albumin, Blood 2.0 g/dL (3.4-5.0); Albumin/Globulin Ratio 0.5 (0.8-1.8); Anion Gap 10.0 mmol/L (3-11); Aspartate Aminotrans (AST/SGOT 24.0 U/L (12-37); Bilirubin, Total 0.3 mg/dL (0.1-1.0); Blood Urea Nitrogen 67.0 mg/dL (8-24); CO2, Blood 28.0 mmol/L (21-32); Calcium, Blood 8.2 mg/dL (8.5-10.1); Chloride, Blood 104.0 mmol/L (98-108); Creatinine, Blood 2.1 mg/dL (0.60-1.20); Globulin, Blood 4.4 g/dL (2.2-4.0); Glucose, Blood 130.0 mg/dL (70-99); Potassium, Blood 4.7 mmol/L (3.5-5.5); Sodium, Blood 137.0 mmol/L (136-145); Total Protein, Blood 6.4 g/dL (6.4-8.2)
[2025-06-14 19:22] VITALS: BP 143/74
[2025-06-14 23:47] VITALS: BP 147/72
--- NOTE | 2025-06-15 03:19 | NUR ---
SHIFT SUMMARY: AOX4. CALLS FOR ASSISTANCE APPROPRIATELY, LIKE NEEDING TO USE THE RESTROOM. TELE MONITORING IN PLACE, A FLUTTER WITH BUNDLE BRANCH BLOCK. CURRENTLY AT BASELINE OF 3L O2 WITH OXYMASK WHILE ASLEEP, PT IS A MOUTHBREATHER WHILE SLEEPING. PT DOES DESAT WITH EXERTION OR SPEAKING FOR EXTENDED PERIODS OF TIME. CALL LIGHT IS WITHIN REACH. BED IS LOW AND LOCKED.
[2025-06-15 04:40] VITALS: BP 130/76
[2025-06-15 05:56] LABS: BASOPHILS ABSOLUTE AUTO 0.03 K/mm3 (0.00-0.23); BASOPHILS PERCENT AUTO 0 % (0-2); EOSINOPHILS ABSOLUTE AUTO 0.16 K/mm3 (0.00-0.68); EOSINOPHILS PERCENT AUTO 1 % (0-6); Hematocrit 26.4 % (37.0-53.0); Hemoglobin 8.7 g/dL (13.5-17.5); IMMATURE GRAN ABSOLUTE AUTO 0.17 K/mm3 (0.00-0.10); IMMATURE GRAN PERCENT AUTO 1 % (0-1); LYMPHOCYTES ABSOLUTE AUTO 0.49 K/mm3 (0.84-5.20); LYMPHOCYTES PERCENT AUTO 3 % (21-46); MONOCYTES ABSOLUTE AUTO 0.96 K/mm3 (0.16-1.47); MONOCYTES PERCENT AUTO 6 % (4-13); Mean Corpuscular HGB Conc 33.0 g/dL (31.5-36.5); Mean Corpuscular Volume 104 fL (80-100); NEUTROPHILS ABSOLUTE AUTO 14.21 K/mm3 (1.96-9.15); NEUTROPHILS PERCENT AUTO 89 % (41-73); NRBC ABSOLUTE 0.00 K/mm3 (0.00-0.02); NRBC Auto 0.0 /100 WBC (0.0-0.2); Platelet Count 259 K/mm3 (150-400); RDW Coefficient Variation 13.8 % (11.7-14.2); RDW Standard Deviation 53.1 fL (35.1-46.3)
[2025-06-15 06:33] LABS: Alanine Aminotransfer (ALT/SGP 28.0 U/L (12-78); Albumin, Blood 1.7 g/dL (3.4-5.0); Albumin/Globulin Ratio 0.4 (0.8-1.8); Anion Gap 6.0 mmol/L (3-11); Aspartate Aminotrans (AST/SGOT 17.0 U/L (12-37); Bilirubin, Total 0.3 mg/dL (0.1-1.0); Blood Urea Nitrogen 63.0 mg/dL (8-24); CO2, Blood 26.0 mmol/L (21-32); Calcium, Blood 7.1 mg/dL (8.5-10.1); Chloride, Blood 108.0 mmol/L (98-108); Creatinine, Blood 1.87 mg/dL (0.60-1.20); Globulin, Blood 3.9 g/dL (2.2-4.0); Glucose, Blood 146.0 mg/dL (70-99); Potassium, Blood 4.1 mmol/L (3.5-5.5); Sodium, Blood 136.0 mmol/L (136-145); Total Protein, Blood 5.6 g/dL (6.4-8.2)
[2025-06-15 08:34] VITALS: BP 150/72
[2025-06-15 12:36] VITALS: BP 157/73
--- NOTE | 2025-06-15 14:14 | NUR ---
Patient is lying in bed and alert. He tells me about the roller coaster of emotions and struggles and about exhaustion he feels after performing small tasks like taking a shower. Yoli his spouse asks for a prayer to be said, which I gladly supply. Patient and Yoli voice their appreciations.
[2025-06-15 16:30] VITALS: BP 165/70
--- NOTE | 2025-06-15 18:00 | NUR ---
SHIFT SUMMARY PATIENT ALERT AND INTERACTIVE. PATIENT HARD OF HEARING. PATIENT ABLE TO WALK TO BR AND BACK WITH WALKER AND STAND BY ASSISTANCE. PATIENT CONTINUES TO HAVE BLOATING AND GAS. PATIENT STATES DIARRHEA IMPROVING AND NOW SOFT STOOLS. DR BE DISCUSSED WITH PATIENT AND FAMILY POSSIBLE PLAN TO DISCHARGE TOMORROW WITH HOME HEALTH. PATIENT AND FAMILY IN AGREEMENT WITH PLAN.
[2025-06-15 19:38] VITALS: BP 148/69
[2025-06-15 20:56] VITALS: BP 153/60
[2025-06-16] VITALS (8 sets, daily range): BP systolic 103–160; BP diastolic 53–101
--- NOTE | 2025-06-16 01:04 | NUR ---
Hyperglycemia 433 Blood glucose POC checked prior to insulin administration and found to be 433. Pt states asymptomatic; however, he is definitly displaying polydipsia as evidence by frequently requesting milk because "I'm just very thirsty." Gave 4 units of insulin based on Low Correction Scale ordered and informed the On-Call Resident Dr. Davis who had reordered the insulin tonight of blood sugar level and intervention taken. Dr. Davis wanted blood sugar checked in 3 hours. To note: patient had taken metformin @ 1800 tonight. Will continue to monitor patient and recheck blood glucose around 0400.
[2025-06-16 05:09] LABS: BASOPHILS ABSOLUTE AUTO 0.05 K/mm3 (0.00-0.23); BASOPHILS PERCENT AUTO 0 % (0-2); EOSINOPHILS ABSOLUTE AUTO 0.13 K/mm3 (0.00-0.68); EOSINOPHILS PERCENT AUTO 1 % (0-6); Hematocrit 29.1 % (37.0-53.0); Hemoglobin 9.6 g/dL (13.5-17.5); IMMATURE GRAN ABSOLUTE AUTO 0.24 K/mm3 (0.00-0.10); IMMATURE GRAN PERCENT AUTO 1 % (0-1); LYMPHOCYTES ABSOLUTE AUTO 0.51 K/mm3 (0.84-5.20); LYMPHOCYTES PERCENT AUTO 3 % (21-46); MONOCYTES ABSOLUTE AUTO 1.33 K/mm3 (0.16-1.47); MONOCYTES PERCENT AUTO 8 % (4-13); Mean Corpuscular HGB Conc 33.0 g/dL (31.5-36.5); Mean Corpuscular Volume 104 fL (80-100); NEUTROPHILS ABSOLUTE AUTO 15.35 K/mm3 (1.96-9.15); NEUTROPHILS PERCENT AUTO 87 % (41-73); NRBC ABSOLUTE 0.00 K/mm3 (0.00-0.02); NRBC Auto 0.0 /100 WBC (0.0-0.2); Platelet Count 302 K/mm3 (150-400); RDW Coefficient Variation 13.8 % (11.7-14.2); RDW Standard Deviation 53.4 fL (35.1-46.3)
[2025-06-16 05:35] LABS: Anion Gap 6.0 mmol/L (3-11); Blood Urea Nitrogen 66.0 mg/dL (8-24); CO2, Blood 27.0 mmol/L (21-32); Calcium, Blood 8.0 mg/dL (8.5-10.1); Chloride, Blood 105.0 mmol/L (98-108); Creatinine, Blood 1.89 mg/dL (0.60-1.20); Glucose, Blood 125.0 mg/dL (70-99); Potassium, Blood 4.3 mmol/L (3.5-5.5); Sodium, Blood 134.0 mmol/L (136-145)
--- NOTE | 2025-06-16 06:22 | NUR ---
Shift Summary AOx4. Pleasant. Cooperative. Slept well through the night. Desats at night and easily awakes to verbal stimuli. Medicated for anxiety and pain per EMAR, effective. When sleeping, had to place simple mask w/ increased O2 to 4L d/t oxygen saturation being low (84%-89%). Once switched over to HFNC, O2 supplement returned to 3L and maintained at or above 90%. 1p SBA w/FWW. Meds whole with applesauce.
[2025-06-16] MEDS ORDERED: Amiodarone HCl200 MG PO (08:09)
[2025-06-16] MEDS ORDERED: VISBIOME 112.51 EACH PO (08:10)
[2025-06-16] MEDS ORDERED: VANCOCIN HCL250 MG PO (08:10)
[2025-06-16] MEDS ORDERED: ELIQUIS2.5 MG PO (08:10)
[2025-06-16] MEDS ORDERED: LORazepam 2 MG/ML 1ML Injection IV ONE (11:15)
[2025-06-16 13:44] LABS: pH Blood Arterial 7.33 (7.35-7.45)
--- NOTE | 2025-06-16 14:09 | NUR ---
RAPID RESPONSE PT CALLED FOR PRN'S @ 1310, FOUND TO BE LOW O2 (81%), RR 30, INCREASED O2 AND NOTIFIED RT WHO IMMED CAME TO BEDSIDE, DR JERONIMO NOTIFIED, ORDERS PLACED FOR STAT CXR, ABG & EKG. RR CALLED AT 1350, PT TRANSFERED TO PCU ON BIPAP BY RAPID RESPONSE TEAM & RT. REPORT CALLED TO LENIN MCKEON
--- NOTE | 2025-06-16 14:31 | NUR ---
arrival to pcu patient arrived from room 301 into room pcu 19 with all belongings. this rn received report from medical floor rn. patient is alert and oriented x4. neuro is intact. perrla. patient reports shortness of breath and is on bipap 16/10 90%. patient lung sounds dim throughout and absent lower lobes. patient denies chest pain/pressure or pain. patient has reddness to bottom that is blanchable. patient abd is soft nontender and active. see shift assessment. md mattson in room discussing plan wth patient and plan to go speak to pulmonoligst. patient agrees to plan
[2025-06-16] MEDS ORDERED: ZINC OXIDE/PETROLATUM, YELLOW 1 APPLIC/71 GM PASTE TOP PRN (14:55)
--- NOTE | 2025-06-16 15:05 | NUR ---
In responding to the Rapid Response vocera page, I entered patient's room and hugged and prayed for patient's spouse, Yoli after she tells me that she is scared for her . I stay with her while the clinical attends to the patient, transfers him to PCU and gets him checked into the room. Dr. Reyes meets us in the hallway and explains his plan to Yoli. I then wa;aryan Kent to the patient's room and encouraged the patient and provided another prayer for them both. They both show signs of greater peace. I will continue to remain available to the patient and family.
--- NOTE | 2025-06-16 15:48 | NUR ---
md camelia rock in room discussing plan of care with and called patients brother to update. plan at this time is to stop anticoagulation and to do a thoracentesis in 48 hours. plan to switch to hiflow pxygen forbreaks and work with [facility];ve an dincetive spirometer. patient and patent agrees to this plan.this rn updated respiratory care
[2025-06-16] MEDS ORDERED: MetroNIDAZOLE 500MG/NS 100 ml 100 ML IV SCH (16:00)
[2025-06-16] MEDS ORDERED: Piperacillin/Tazobactam Sod 3.375 GM in NS 100 ML IV SCH (16:00)
--- NOTE | 2025-06-16 16:58 | NUR ---
update patient tolerating coming off bipap for roughly 10 mins and able to do flutter valve and then dropped into mid 80s and sustained. md rock rounding during this time and respiratory therapy in and placed back on bipap. md rock wants pulmonary toileting every 2 hours while patient is awake and tolerates. md rock has orders in place to transfer to icu if patient is requiring fio2 at 80%. hot car charger is aware and chriss watt with respiratory care is aware. patient is aware and agrees with these plans. patient is on bipap 16/10 60% and spo2 is 88-90% at this time.
--- NOTE | 2025-06-16 18:15 | NUR ---
shift summary see previous notes. vital remain stable. no acute changes sinceprevious notes.
[2025-06-17] VITALS (9 sets, daily range): BP systolic 94–156; BP diastolic 44–94
[2025-06-17 04:01] LABS: BASOPHILS ABSOLUTE AUTO 0.05 K/mm3 (0.00-0.23); BASOPHILS PERCENT AUTO 0 % (0-2); EOSINOPHILS ABSOLUTE AUTO 0.07 K/mm3 (0.00-0.68); EOSINOPHILS PERCENT AUTO 0 % (0-6); Hematocrit 28.8 % (37.0-53.0); Hemoglobin 9.5 g/dL (13.5-17.5); IMMATURE GRAN ABSOLUTE AUTO 0.15 K/mm3 (0.00-0.10); IMMATURE GRAN PERCENT AUTO 1 % (0-1); LYMPHOCYTES ABSOLUTE AUTO 0.36 K/mm3 (0.84-5.20); LYMPHOCYTES PERCENT AUTO 2 % (21-46); MONOCYTES ABSOLUTE AUTO 1.43 K/mm3 (0.16-1.47); MONOCYTES PERCENT AUTO 7 % (4-13); Mean Corpuscular HGB Conc 33.0 g/dL (31.5-36.5); Mean Corpuscular Volume 103 fL (80-100); NEUTROPHILS ABSOLUTE AUTO 17.57 K/mm3 (1.96-9.15); NEUTROPHILS PERCENT AUTO 89 % (41-73); NRBC ABSOLUTE 0.00 K/mm3 (0.00-0.02); NRBC Auto 0.0 /100 WBC (0.0-0.2); Platelet Count 307 K/mm3 (150-400); RDW Coefficient Variation 13.9 % (11.7-14.2); RDW Standard Deviation 53.3 fL (35.1-46.3)
[2025-06-17 04:21] LABS: Alanine Aminotransfer (ALT/SGP 31.0 U/L (12-78); Albumin, Blood 1.7 g/dL (3.4-5.0); Albumin/Globulin Ratio 0.4 (0.8-1.8); Anion Gap 8.0 mmol/L (3-11); Aspartate Aminotrans (AST/SGOT 16.0 U/L (12-37); Bilirubin, Total 0.4 mg/dL (0.1-1.0); Blood Urea Nitrogen 70.0 mg/dL (8-24); CO2, Blood 26.0 mmol/L (21-32); Calcium, Blood 7.5 mg/dL (8.5-10.1); Chloride, Blood 103.0 mmol/L (98-108); Creatinine, Blood 2.33 mg/dL (0.60-1.20); Globulin, Blood 4.4 g/dL (2.2-4.0); Glucose, Blood 140.0 mg/dL (70-99); Potassium, Blood 5.0 mmol/L (3.5-5.5); Sodium, Blood 132.0 mmol/L (136-145); Total Protein, Blood 6.1 g/dL (6.4-8.2)
--- NOTE | 2025-06-17 06:20 | NUR ---
SHIFT SUMMARY: PT A&OX4 CALM AND COOPERATIVE. REMAINED ON BIPAP 16/10 50% MAINTAINING >92% SPO2. BP TRENDED DOWN DURING SHIFT. BP 99/44 (58). PROVIDER NOTIFIED. PROVIDER ORDERED MIDODRINE 10MG PO AND MEDICATED PER ORDER. BP INCREASED AND MAP >65. PT REMAINED BEDREST. ISOLATION FOR CDIFF. NO LOOSE STOOLS DURING SHIFT. PT TOLERATING REGULAR DIET. WILL CONTINUE PLAN OF CARE TILL REPORT GIVEN TO DAY NURSE. BED IS LOW AND LOCKED AND CALL LIGHT WITHIN REACH.
--- NOTE | 2025-06-17 08:36 | NUR ---
MD SABINA rock in the room with the patient and patient luciana. md rock discussed doing a thoracentesis vs chest tube at this point in time due to the patient respiratory status improving. md rock roman a picture and explained this to both the patient and and then called and informed additional family members.
[2025-06-17] MEDS ORDERED: ALBU90OI INH (09:50)
[2025-06-17] MEDS ORDERED: ANORO ELLIPTA1 EACH INH (10:01)
[2025-06-17] MEDS ORDERED: BUME2 PO (10:02)
[2025-06-17] MEDS ORDERED: Norco 5-325 Ta1 EACH PO (10:03)
--- NOTE | 2025-06-17 10:04 | NUR ---
am note this rn assumed care at 0700. vital signs stable. tele aflutter 80s. spo2 >90% on 6l high flow nc. patient is alert and oriented x4. perrla. patient is able to make needs known and uses call light appropriately. patient denies pain, chest pain/pressure or shortness of breath. patient lung sounds throughout bilateral wu have expiratory wheezes. patient bottom is red and blanchable. patiet continent of bowel and bladder. see shift assessment for further detials. see previous note.
[2025-06-17] MEDS ORDERED: Isosorbide Mono60 MG PO (10:05)
[2025-06-17] MEDS ORDERED: ISOSORBIDE MONO60 MG PO (10:05)
[2025-06-17] MEDS ORDERED: NITR.4SL SL (10:06)
[2025-06-17 10:20] LABS: Acinetobacter baumannii DNA Not Detected copy/mL (NOT DETECT); Chlamydia pneumonia Not Detected (NOT DETECT); Enterobacter cloacae DNA Not Detected copy/mL (NOT DETECT); Escherichia coli DNA Not Detected copy/mL (NOT DETECT); Haemophilus influenzae DNA Not Detected copy/mL (NOT DETECT); Human Coronavirus RNA Not Detected (NOT DETECT); Human Metapneumovirus RNA Not Detected (NOT DETECT); Influenza virus A RNA Not Detected (NOT DETECT); Influenza virus B RNA Not Detected (NOT DETECT); Klebsiella aerogenes DNA Not Detected copy/mL (NOT DETECT); Klebsiella oxytoca DNA Not Detected copy/mL (NOT DETECT); Klebsiella pneumoniae DNA Not Detected copy/mL (NOT DETECT); Moraxella catarrhalis DNA Not Detected copy/mL (NOT DETECT); Proteus sp DNA Not Detected copy/mL (NOT DETECT); Pseudomonas aeruginosa DNA Not Detected copy/mL (NOT DETECT); Respiratory syncytial Vir RNA Not Detected (NOT DETECT); Rhinovirus+Enterovirus RNA Not Detected (NOT DETECT); Serratia marcescens DNA Not Detected copy/mL (NOT DETECT); Staphylococcus aureus DNA Not Detected copy/mL (NOT DETECT); Streptococcus agalactiae DNA Not Detected copy/mL (NOT DETECT); Streptococcus pneumoniae DNA Not Detected copy/mL (NOT DETECT); Streptococcus pyogenes DNA Not Detected copy/mL (NOT DETECT)
--- NOTE | 2025-06-17 10:46 | NUR ---
update md meredith in room and discussed plan of care with patient
--- NOTE | 2025-06-17 17:01 | NUR ---
shift summary patient spent two hours on bipap this afternoon while napping 16/10 fio2 30% with spo2 >90%. while patient was not on bipap the patient tolerated 6l high flow nasal cannula with spo2 >90%. patient tolerated getting up to the bathroom this evening and when returning to bed spo2 86 and recovered quickly. vital signs remain stable. no acute changes this shift. patient had bed bath today and linen change. see previous notes
[2025-06-18] VITALS (9 sets, daily range): BP systolic 90–119; BP diastolic 47–64
--- NOTE | 2025-06-18 05:26 | NUR ---
SHIFT SUMMARY PATIENT ALERT, ORIENTED x3-4, UPPER [place]. ABLE TO MAKE NEEDS KNOWN TO STAFF. TELE READING AFIB. BP OCCASIONALLY SOFT, BUT PATIENT ASYMPTOMATIC. PATIENT TITRATED TO 3L NC, WEARING BIPAP AT TIMES, SPO2 MID 90s. PATIENT AMBULATING TO BATHROOM SBA WITH WALKER. ADEQUATE OUTPUT DURING THE NIGHT. PATIENT NPO SINCE 0000 FOR POSSIBLE THORACENTESIS TODAY. NO OTHER CHANGES DURING THE NIGHT, WILL REPORT TO DAY SHIFT RN.
[2025-06-18 12:22] LABS: BASOPHILS ABSOLUTE AUTO 0.08 K/mm3 (0.00-0.23); BASOPHILS PERCENT AUTO 0 % (0-2); EOSINOPHILS ABSOLUTE AUTO 0.21 K/mm3 (0.00-0.68); EOSINOPHILS PERCENT AUTO 1 % (0-6); Hematocrit 30.7 % (37.0-53.0); Hemoglobin 9.9 g/dL (13.5-17.5); IMMATURE GRAN ABSOLUTE AUTO 0.18 K/mm3 (0.00-0.10); IMMATURE GRAN PERCENT AUTO 1 % (0-1); LYMPHOCYTES ABSOLUTE AUTO 0.37 K/mm3 (0.84-5.20); LYMPHOCYTES PERCENT AUTO 2 % (21-46); MONOCYTES ABSOLUTE AUTO 1.50 K/mm3 (0.16-1.47); MONOCYTES PERCENT AUTO 7 % (4-13); Mean Corpuscular HGB Conc 32.2 g/dL (31.5-36.5); Mean Corpuscular Volume 105 fL (80-100); NEUTROPHILS ABSOLUTE AUTO 18.10 K/mm3 (1.96-9.15); NEUTROPHILS PERCENT AUTO 89 % (41-73); NRBC ABSOLUTE 0.00 K/mm3 (0.00-0.02); NRBC Auto 0.0 /100 WBC (0.0-0.2); Platelet Count 311 K/mm3 (150-400); RDW Coefficient Variation 14.0 % (11.7-14.2); RDW Standard Deviation 54.4 fL (35.1-46.3)
[2025-06-18 12:40] LABS: Anion Gap 8.0 mmol/L (3-11); Blood Urea Nitrogen 88.0 mg/dL (8-24); CO2, Blood 28.0 mmol/L (21-32); Calcium, Blood 7.8 mg/dL (8.5-10.1); Chloride, Blood 102.0 mmol/L (98-108); Creatinine, Blood 2.82 mg/dL (0.60-1.20); Glucose, Blood 125.0 mg/dL (70-99); Potassium, Blood 5.0 mmol/L (3.5-5.5); Sodium, Blood 133.0 mmol/L (136-145)
[2025-06-18 13:01] LABS: Lactate Dehydrogenase (Ld),Bld 236.0 U/L (100-240); Total Protein, Blood 6.2 g/dL (6.4-8.2)
[2025-06-18 14:21] LABS: Prothrombin Time Results 12.3 Sec (9.7-11.5)
--- NOTE | 2025-06-18 17:25 | NUR ---
Thoracentesis / End of Shift Pt A&O x4. VSS. Spo2 > 92% on 3L NC which pt reports being home o2 use. Monitor showing afib, HR 70s-90s. Pt gone for L sided thoracentesis this shift. Pt tolerated well. Pt stating "it went perfectly." Pt spouse at bedside.
[2025-06-18 18:02] LABS: Glucose, Body Fluid 33 mg/dL; Lactate Dehydrogenase, Body Fl 553 U/L
[2025-06-18 19:50] LABS: Automated BF WBC Count 3.425 K/mm3 (0-999)
[2025-06-18 19:51] LABS: Automated BF RBC Count 0.003 M/mm3 (0-0); RBC Count, Body Fluid 3000 /mm3 (0-0)
[2025-06-18 20:18] LABS: Color, Body Fluid Yellow (None-Yellow); Lymphocytes, Fluid 3.0 % (0.0-18.0); Monocytes/Mononuclear, Fluid 9.0 % (0.0-50.0); Neutrophils, Fluid 88.0 % (0.0-25.0); Total Cell Count, Body Fluid 100
[2025-06-19 04:00] VITALS: BP 112/60
--- NOTE | 2025-06-19 06:45 | NUR ---
PT ALERT AND ORIENTED X4. ON 02/01 L N.C AND BIPAP HS. PT ONE ASSIST TO BATHROOM WITH GAIT BELT AND FWW. MEDICATED FOR CHRONIC BACK PAIN AND NAUSEA PER JAN. NO C/O OF CHEST PAIN. PT HAD ONE SOFT BM. CALLS AND MAKES NEEDS KNOWN. CALL GARCIA WITHIN REACH
[2025-06-19 12:26] LABS: BASOPHILS ABSOLUTE AUTO 0.10 K/mm3 (0.00-0.23); BASOPHILS PERCENT AUTO 1 % (0-2); EOSINOPHILS ABSOLUTE AUTO 0.22 K/mm3 (0.00-0.68); EOSINOPHILS PERCENT AUTO 1 % (0-6); Hematocrit 32.2 % (37.0-53.0); Hemoglobin 10.6 g/dL (13.5-17.5); IMMATURE GRAN ABSOLUTE AUTO 0.14 K/mm3 (0.00-0.10); IMMATURE GRAN PERCENT AUTO 1 % (0-1); LYMPHOCYTES ABSOLUTE AUTO 0.35 K/mm3 (0.84-5.20); LYMPHOCYTES PERCENT AUTO 2 % (21-46); MONOCYTES ABSOLUTE AUTO 1.18 K/mm3 (0.16-1.47); MONOCYTES PERCENT AUTO 6 % (4-13); Mean Corpuscular HGB Conc 32.9 g/dL (31.5-36.5); Mean Corpuscular Volume 104 fL (80-100); NEUTROPHILS ABSOLUTE AUTO 16.64 K/mm3 (1.96-9.15); NEUTROPHILS PERCENT AUTO 89 % (41-73); NRBC ABSOLUTE 0.00 K/mm3 (0.00-0.02); NRBC Auto 0.0 /100 WBC (0.0-0.2); Platelet Count 284 K/mm3 (150-400); RDW Coefficient Variation 14.1 % (11.7-14.2); RDW Standard Deviation 54.4 fL (35.1-46.3)
[2025-06-19 12:44] VITALS: BP 119/50
[2025-06-19 14:16] LABS: Anion Gap 9.0 mmol/L (3-11); Blood Urea Nitrogen 103.0 mg/dL (8-24); CO2, Blood 25.0 mmol/L (21-32); Calcium, Blood 7.7 mg/dL (8.5-10.1); Chloride, Blood 103.0 mmol/L (98-108); Creatinine, Blood 3.34 mg/dL (0.60-1.20); Glucose, Blood 135.0 mg/dL (70-99); Potassium, Blood 5.3 mmol/L (3.5-5.5); Sodium, Blood 132.0 mmol/L (136-145)
[2025-06-19 17:02] VITALS: BP 109/47
--- NOTE | 2025-06-19 18:38 | NUR ---
SHIFT SUMMARY IV ABX CONTINUED TODAY, PULMONARY DISCUSSED THEIR CURRENT RECOMMENDATIONS IN A LENGTHY DISCUSSING WITH THE PATIENT AND HIS . HE HAD A LOT OF VISITORS TODAY AND HAS BEEN RESTING IN BETWEEN THEM. NO SIGNIFICANT CHANGES TODAY, HIS ARMS HAVE HAD A SLIGHT INCREASE IN EDEMA BUT NO INCREASE IN HIS ABD OR LEGS. HE WAS ABLE TO SIT UP AT THE EDGE OF THE BED FOR MEALS BUT REPORTS CONCERN ABOUT ASPIRATION RISK. ST TO BE CONSULTED TOMORROW TO HELP EVALUATE HIS SWALLOWING, USING SINGLE PILL AT A TIME IN APPLE SAUCE IN THE MEAN TIME WHICH HAS BEEN EFFECTIVE. 3-4 L NC T/O THE SHIFT TODAY, HE HAD A FEW DIPS IN SATS BUT THEY APPEARED TO BE R/T A BAD CONNECTION ON THE FINGER PROBE. PENDING POSSIBLE TRANSFER TO [facility]. NO ACUTE EVENTS THIS SHIFT, CALL LIGHT IN REACH.
[2025-06-19 20:09] VITALS: BP 138/48
[2025-06-19 23:22] VITALS: BP 113/51
[2025-06-20] VITALS (10 sets, daily range): BP systolic 92–121; BP diastolic 45–79
[2025-06-20 03:54] LABS: BASOPHILS ABSOLUTE AUTO 0.07 K/mm3 (0.00-0.23); BASOPHILS PERCENT AUTO 0 % (0-2); EOSINOPHILS ABSOLUTE AUTO 0.28 K/mm3 (0.00-0.68); EOSINOPHILS PERCENT AUTO 2 % (0-6); Hematocrit 28.4 % (37.0-53.0); Hemoglobin 9.1 g/dL (13.5-17.5); IMMATURE GRAN ABSOLUTE AUTO 0.12 K/mm3 (0.00-0.10); IMMATURE GRAN PERCENT AUTO 1 % (0-1); LYMPHOCYTES ABSOLUTE AUTO 0.27 K/mm3 (0.84-5.20); LYMPHOCYTES PERCENT AUTO 2 % (21-46); MONOCYTES ABSOLUTE AUTO 1.03 K/mm3 (0.16-1.47); MONOCYTES PERCENT AUTO 6 % (4-13); Mean Corpuscular HGB Conc 32.0 g/dL (31.5-36.5); Mean Corpuscular Volume 103 fL (80-100); NEUTROPHILS ABSOLUTE AUTO 14.78 K/mm3 (1.96-9.15); NEUTROPHILS PERCENT AUTO 89 % (41-73); NRBC ABSOLUTE 0.00 K/mm3 (0.00-0.02); NRBC Auto 0.0 /100 WBC (0.0-0.2); Platelet Count 283 K/mm3 (150-400); RDW Coefficient Variation 14.0 % (11.7-14.2); RDW Standard Deviation 53.2 fL (35.1-46.3)
[2025-06-20 04:16] LABS: Alanine Aminotransfer (ALT/SGP 70.0 U/L (12-78); Albumin, Blood 1.4 g/dL (3.4-5.0); Albumin/Globulin Ratio 0.3 (0.8-1.8); Anion Gap 9.0 mmol/L (3-11); Aspartate Aminotrans (AST/SGOT 37.0 U/L (12-37); Bilirubin, Total 0.3 mg/dL (0.1-1.0); Blood Urea Nitrogen 103.0 mg/dL (8-24); CO2, Blood 26.0 mmol/L (21-32); Calcium, Blood 7.4 mg/dL (8.5-10.1); Chloride, Blood 102.0 mmol/L (98-108); Creatinine, Blood 3.42 mg/dL (0.60-1.20); Globulin, Blood 4.5 g/dL (2.2-4.0); Glucose, Blood 143.0 mg/dL (70-99); Potassium, Blood 5.2 mmol/L (3.5-5.5); Sodium, Blood 132.0 mmol/L (136-145); Total Protein, Blood 5.9 g/dL (6.4-8.2)
--- NOTE | 2025-06-20 04:46 | NUR ---
SHIFT SUMMARY PT ALERT AND ORIENTED X 4. PT TOLERATED BIPAP FOR 4 HOURS THEN ASKED TO BE TRANSITONED BACK TO NC. ON 4L NC WITH CLEAR LUNGS. PT AFIB WITH HR IN 70S. NO C/O OF CP. VSS. PT DENIES PAIN. NO BM THIS SHIFT. ADEQUATE URINE OUTPUT. IV ABX INFUSED. UPDATES GIVEN TO SON AND BROTHER WITH PERMISSION FROM PT. PT ABLE TO MAKE NEEDS KNOWN. POSSIBLE BARIUM SWALLOW AND/OR TRANSFER TO OUTSIDE HOSPITAL TOMORROW.
--- NOTE | 2025-06-20 11:38 | NUR ---
Spiritual care visit conducted. The patient is sitting up in bed and alert. Spouse, Yoli, is bedisde. Yoli voices her appreciation for her family and oriental orthodox friends who have stepped up to take care of the details for them to to be together when the patient is transferred up [place] for a surgery. They both speak about their jessica and the peace they have for whatever this medical crisis may bring. The patient states that he is at peace with God if he dies and hopeful that he will instead come out the other side of this alive and able to recover well. I provided therapeutic listening and prayer. They both responded and showed signs of being encouraged in their Christain jessica.
[2025-06-20] MEDS ORDERED: Piperacillin/Tazobactam Sod 3.375 GM in NS 100 ML IV SCH (12:00)
--- NOTE | 2025-06-20 14:06 | NUR ---
1330 - PT FINISHING LUNCH AND DESATURATION NOTED ON MONITOR TO MID 80S on 3-4L VIA NC. POOR ORAL CLEARANCE, WHEEZING, NOTED. RT GREGOR FISCHER CALLED TO BEDSIDE AND DOT COMPLIANCE MANAGER UPDATED PT REQUIRING 9-10L VIA HFNC. PT PLACED ON BIPAP AT 35% PER RT. NOTIFIED DR. VILLARREAL AND PLAN FOR REPEAT SPEECH EVAL AND CHANGE IN DIET TO MINCED/MOIST AND SUPERVISED FEED AND PLAN FOR BEDSIDE SWALLOW EVAL
[2025-06-20] MEDS ORDERED: NS 250 ML IV ONE (16:40)
--- NOTE | 2025-06-20 18:40 | NUR ---
DAY SHIFT SUMMARY PT ORIENTED X3-4, FORGETFUL AT TIMES BUT PLEASANT AND COOPEARTIVE. ABLE TO MAKE NEEDS KNOWN. ALERT TO LETHARGIC. R PTOSIS PT STATES BASELINE. JAUN IN ROOM FOR MD MUHAMMAD, SPOKE WITH DR. VILLARREAL AND DR. SANABRIA AND PLAN FOR [facility] TRANSFER VIA [facility]. ACCEPTING MD DR. REYES. TOWARDS END OF SHIFT PT WITH LETHARGY, INCREASE R PTOSIS AND R TONGUE DEVIATION/DROOP. STATES IT HAS "WORSENED THIS LAST WEEK" AND NOT BASELINE FOR PATIENT. INCREASE IN O2 DEMAND AFTER LUNCH AND CONCERN FOR ASPIRATION. SEE PREVIOUS NOTE FOR DETAILS. ALSO HAD HYPOTENSION EPISODE WITH MAP OF [address] VILLARREAL AND DR. SANABRIA, CT HEAD ORDERED, IV STEROIDS, AND 250ML BOLUS AND MIDODRINE EARLY. BP INCREASED TO BASELINE. WILL PASS ON TO NOC LENIN
[2025-06-21 04:20] VITALS: BP 104/47; BP 106/41
[2025-06-21] MEDS ORDERED: NS 1,000 ML BAG IR ONE (04:35)
[2025-06-21] MEDS ORDERED: NS 250 ML IV SCH (04:40)
--- NOTE | 2025-06-21 06:34 | NUR ---
NOC SHIFT SUMMARY PT IS A+O X 3-4, HE IS ABLE TO MAKE NEEDS KNOWN. HAS SLEPT MOST OF THE NIGHT IN BETWEEN CARES. PT BP LOW (SEE VITALS) MAP BELOW 65 REPORTED TO MD GALARZA, 250ML BOULUS ORDERED AND GIVEN, PT WAS ASYMPTOMATIC WITH THIS. PT STILL REQUIRING 8-10L HIFLOW NC. ORAL CARE PROVIDED, CHAPSTICK APPLIED T/O THE NIGHT. PT R PTOSIS NOTED AND PT EXPRESSED HAVING A RESTING TREMOR THAT STARTED SINCE ADMIT. PT IS CURRENTLY SLEEPING IN BED W/ HOB @45. BED IN LOWEST POSTION. CALL LIGHT IN REACH
[2025-06-21 08:42] VITALS: BP 105/58
--- NOTE | 2025-06-21 09:54 | NUR ---
Pt is very weak today. He is extremely pale, and has hand and arm tremors bilaterally after assisted efforts to turn on his side after meds. He is requiring 9 l/min of Oxygen. Lung sounds are very coarse and wheezing throughout. Tachypneic 24 / min and dyspnea with minimal exertion. No respiratory distress. Able to speak short sentences. He declined breakfast, stating that he just is not very hungry. Took all his oral meds with applesauce and no difficulty noted. His and two friends are at the bedside. Vital signs are stable.
[2025-06-21 10:10] LABS: BASOPHILS ABSOLUTE AUTO 0.03 K/mm3 (0.00-0.23); BASOPHILS PERCENT AUTO 0 % (0-2); EOSINOPHILS ABSOLUTE AUTO 0.00 K/mm3 (0.00-0.68); EOSINOPHILS PERCENT AUTO 0 % (0-6); Hematocrit 31.0 % (37.0-53.0); Hemoglobin 9.8 g/dL (13.5-17.5); IMMATURE GRAN ABSOLUTE AUTO 0.14 K/mm3 (0.00-0.10); IMMATURE GRAN PERCENT AUTO 1 % (0-1); LYMPHOCYTES ABSOLUTE AUTO 0.14 K/mm3 (0.84-5.20); LYMPHOCYTES PERCENT AUTO 1 % (21-46); MONOCYTES ABSOLUTE AUTO 0.17 K/mm3 (0.16-1.47); MONOCYTES PERCENT AUTO 1 % (4-13); Mean Corpuscular HGB Conc 31.6 g/dL (31.5-36.5); Mean Corpuscular Volume 107 fL (80-100); NEUTROPHILS ABSOLUTE AUTO 18.53 K/mm3 (1.96-9.15); NEUTROPHILS PERCENT AUTO 98 % (41-73); NRBC ABSOLUTE 0.00 K/mm3 (0.00-0.02); NRBC Auto 0.0 /100 WBC (0.0-0.2); Platelet Count 294 K/mm3 (150-400); RDW Coefficient Variation 14.1 % (11.7-14.2); RDW Standard Deviation 55.8 fL (35.1-46.3)
[2025-06-21 10:35] LABS: Alanine Aminotransfer (ALT/SGP 58.0 U/L (12-78); Albumin, Blood 1.5 g/dL (3.4-5.0); Albumin/Globulin Ratio 0.3 (0.8-1.8); Anion Gap 10.0 mmol/L (3-11); Aspartate Aminotrans (AST/SGOT 20.0 U/L (12-37); Bilirubin, Total 0.5 mg/dL (0.1-1.0); Blood Urea Nitrogen 116.0 mg/dL (8-24); CO2, Blood 25.0 mmol/L (21-32); Calcium, Blood 7.8 mg/dL (8.5-10.1); Chloride, Blood 104.0 mmol/L (98-108); Creatinine, Blood 3.97 mg/dL (0.60-1.20); Globulin, Blood 5.2 g/dL (2.2-4.0); Glucose, Blood 177.0 mg/dL (70-99); Sodium, Blood 132.0 mmol/L (136-145); Total Protein, Blood 6.7 g/dL (6.4-8.2)
[2025-06-21 10:39] LABS: Potassium, Blood 6.6 mmol/L (3.5-5.5)
--- NOTE | 2025-06-21 10:51 | NUR ---
notified of worsening kidney function as well as critical potassium level at this time. Awaiting orders after she reviews the chart.
[2025-06-21] MEDS ORDERED: Darbepoetin (Pharmacy Consult) SC SCH (11:20)
[2025-06-21 11:40] VITALS: BP 107/39
--- NOTE | 2025-06-21 12:18 | NUR ---
Pt voided. Bladder scan post void 230 cc. Purewick applied after pericare and shave, new orders received from the database admin who was consulted by Dr. Hu.
--- NOTE | 2025-06-21 12:42 | NUR ---
Pt is sleeping. UPdate from [facility]: anticipated discharges make probability of bed availability good for transfer today.
[2025-06-21 15:22] VITALS: BP 110/66
[2025-06-21] MEDS ORDERED: Bumetanide 0.25 MG/ML 10ML Vial IV ONE (15:35)
--- NOTE | 2025-06-21 15:38 | NUR ---
No urine output today. Call to Dr. Arias, notified of lack of urine output, bladder scan result (380 at this time), and latest potassium (6.3). New orders received for additional IV bumex, Po metolazone and PO lokelma.
[2025-06-21] MEDS ORDERED: Darbepoetin Alfa In Albumn Sol 40 MCG/0.4 ML SC SCH (16:00)
[2025-06-21 16:21] VITALS: BP 110/66
--- NOTE | 2025-06-21 16:32 | NUR ---
Telephone report given to Che at ICU [facility] at this time. Anticipated fruit picker time is 1914 this evening. The pt, Pt's brother Rory, Yoli and Friend Nany were all updated on current plan.
[2025-06-21 19:27] VITALS: BP 109/52
--- NOTE | 2025-06-21 20:15 | NUR ---
COBRA TRANSFER. REPORT WAS GIVEN TO [facility] IN [place] BY NITHIN PHELPS ON -THIS RN RECEIVED REPORT ON PATIENT, VITAL SIGNS OBTAINED AND PLAN FOR PATIENT TO TRANSPORT OUT AT APPROXIMATELY [id number]-[facility] ARRIVED AT 1930 FOR TRANSPORT-PATIENT DISCONNECTED FROM [facility] AND [place], ATTENDS PLACED AND PATIENT TRANSFERED FROM HOSPITAL BED TO [facility]-PATIENT PLACED ON 10LPM VIA HIGH FLOW NASAL CANNULA AND AMBULANCE PROVIDED OXYGEN. PATIENT LEFT [facility] AT 1950
== END 2025-06-21 19:50 | disposition short-term general hospital (02) | DRG 871 ==
LOC: ER 11:57 → MEDS 11:58 → ER 11:58 → MEDS 11:58 → PCU 06-03 14:50 → MEDS 06-03 14:50 → ICUE 06-04 12:53 → MEDS 06-04 12:53 → ICUE 06-04 12:53 → PCU 06-06 15:30 → MEDS 06-07 16:54 → ENPENDDIS 06-16 13:59 → PCU 06-16 14:07
PROVIDERS: Emergency Medicine; Family Medicine; Hospitalist; Internal Medicine; Internal Medicine Nephrology; Student in an Organized Health Care Education/Training Program; ADMIT Internal Medicine
PROC: 3E03329 Introduction of Other Anti-infective into Peripheral Vein, Percutaneous Approach (ICD-10-PCS; principal; 2025-06-03)
PROC: 3E033XZ Introduction of Vasopressor into Peripheral Vein, Percutaneous Approach (ICD-10-PCS; 2025-06-04)
PROC: 0T9B70Z Drainage of Bladder with Drainage Device, Via Natural or Artificial Opening (ICD-10-PCS; 2025-06-04)
PROC: 5A09357 Assistance with Respiratory Ventilation, Less than 24 Consecutive Hours, Continuous Positive Airway Pressure (ICD-10-PCS; 2025-06-16)
PROC: 4A033R1 Measurement of Arterial Saturation, Peripheral, Percutaneous Approach (ICD-10-PCS; 2025-06-16)
PROC: 0W9B3ZZ Drainage of Left Pleural Cavity, Percutaneous Approach (ICD-10-PCS; 2025-06-18)
DX: A41.59 Other Gram-negative sepsis (principal); I50.43 Acute on chronic combined systolic (congestive) and diastolic (congestive) heart failure; J15.0 Pneumonia due to Klebsiella pneumoniae; J96.21 Acute and chronic respiratory failure with hypoxia; J86.9 Pyothorax without fistula; J96.22 Acute and chronic respiratory failure with hypercapnia; J44.0 Chronic obstructive pulmonary disease with (acute) lower respiratory infection; I13.0 Hypertensive heart and chronic kidney disease with heart failure and stage 1 through stage 4 chronic kidney disease, or unspecified chronic kidney disease; Z66 Do not resuscitate; N17.9 Acute kidney failure, unspecified; A04.72 Enterocolitis due to Clostridium difficile, not specified as recurrent; J44.1 Chronic obstructive pulmonary disease with (acute) exacerbation; E87.1 Hypo-osmolality and hyponatremia; I48.92 Unspecified atrial flutter; J98.11 Atelectasis; N18.4 Chronic kidney disease, stage 4 (severe); I48.0 Paroxysmal atrial fibrillation; F41.9 Anxiety disorder, unspecified; M10.9 Gout, unspecified; E78.5 Hyperlipidemia, unspecified; I25.10 Atherosclerotic heart disease of native coronary artery without angina pectoris; I49.3 Ventricular premature depolarization; I27.20 Pulmonary hypertension, unspecified; I73.9 Peripheral vascular disease, unspecified; D69.6 Thrombocytopenia, unspecified; D53.9 Nutritional anemia, unspecified; N40.1 Benign prostatic hyperplasia with lower urinary tract symptoms; R13.10 Dysphagia, unspecified; I95.9 Hypotension, unspecified; R33.8 Other retention of urine; E87.5 Hyperkalemia; E88.09 Other disorders of plasma-protein metabolism, not elsewhere classified; Z95.1 Presence of aortocoronary bypass graft; Z88.1 Allergy status to other antibiotic agents; Z88.5 Allergy status to narcotic agent; Z88.8 Allergy status to other drugs, medicaments and biological substances; Z99.81 Dependence on supplemental oxygen; Z85.528 Personal history of other malignant neoplasm of kidney; Z79.82 Long term (current) use of aspirin; Z79.84 Long term (current) use of oral hypoglycemic drugs; I25.2 Old myocardial infarction; Z95.828 Presence of other vascular implants and grafts
CPT/HCPCS: 0528U; 32555; 36415; 36600; 70450; 71045; 71046; 71250; 74230; 76770; 78451; 80048; 80053; 82570; 82803; 82945; 83605; 83615; 83690; 83735; 83880; 84132; 84145; 84155; 84157; 84300; 84443; 84484; 84540; 85025; 85610; 85730; 87070; 87077; 87081; 87186; 87205; 87324; 87507; 88108; 88305; 88342; 89051; 92526; 92610; 92611; 93005; 93010; 93017; 94640; 94660; 94664; 94760; 94762; 96372; 96374; 96375; 96376; 97110; 97110-CQ; 97112; 97116; 97116-CQ; 97161; 97165; 97530; 97535; 99285-25; A9270; A9500; C1751; C8929; G0378; J0282; J0881; J1644; J1650; J1938; J2405; J2470; J2543; J2785; J2919; J3010; J7030; J7040; J7050; J7060; J7512; Q9957; Q9967